=== PATIENT | female | born 1960 | race Native Hawaiian/Other Pacific Islander ===

== ENCOUNTER 2020-06-03 11:39 | Inpatient (IN) | payer MEDICARE, MEDICAID, SELFPAY ==
[2020-06-03] VITALS (22 sets, daily range): BP systolic 119–181; BP diastolic 57–96; PULSE 55–69; RESP 16–30; TEMP 36.4–36.7; O2SAT 94–100; BMI 27.1; BMI 23.2
--- NOTE | 2020-06-03 11:53 | ED_ITS ---
HPI - Extremity Injury (Lower) <SUSI Ruth - Last Filed: 06/03/20 17:40> General Source: patient and EMS Mode of arrival: EMS Limitations: no limitations History of Present Illness HPI Narrative: 59yo female a cholecystectomy, presents to the emergency department complaining of intermittent epigastric abdominal pain that started around 4:00 a.m. today. She states it often comes and goes, it comes on in severe episodes that nausea. Patient states she drove from [place] today and parked at the gas station by the hospital, the pain returned suddenly. She states the pain was so severe that she thought she was going to pass out so she stayed in her car and called an ambulance. Patient denies any other major medical issues. She denies any vomiting, diarrhea, fevers, chills, cough, shortness of breath, syncope, or other concerns. She denies any dysuria or blood in her stools. EMS initially report patient would not answer any other questions. Related Data Allergies Allergy/AdvReac Type Severity Reaction Status Date / Time No Known Drug Allergies Allergy Verified 06/03/20 11:59 Review of Systems <SUSI Ruth - Last Filed: 06/03/20 17:40> Review of Systems Narrative: REVIEW OF SYSTEMS: GENERAL: Denies fever, chills, malaise, or wt. loss. HENT: No head trauma, sore throat, or dysphagia. EYES: No loss of vision, double vision, eye pain, or irritation. CARDIOVASCULAR: No chest pain, palpitations, or orthopnea. RESPIRATORY: No shortness of breath or cough. GASTROINTESTINAL: Complains of abdominal pain, see HPI GENITOURINARY: No flank pain, urinary incontinence, hesitancy, frequency, or dysuria. MUSCULOSKELETAL: No pain, weakness, or trauma. INTEGUMENTARY: No rash, lesions, or pruritus. NEURO: No numbness, tingling, memory loss, confusion, or headaches. PSYCH: No behavior or mood changes. Patient History <SUSI Ruth - Last Filed: 06/03/20 17:40> Medical History (Updated 06/03/20 @ 18:01 by Giles Abrams RN) Rotator cuff tear, left (Acute) Surgical History History of cholecystectomy (Acute) Social History household members: none Smoking Status: Current every day smoker alcohol intake: never Smoking Status: Current every day smoker tobacco type: cigarettes alcohol intake frequency: other Substance Use Type: does not use Exam <SUSI Ruth - Last Filed: 06/03/20 17:40> Initial Vital Signs Initial Vital Signs: Vital Signs Temperature 98 F 06/03/20 11:41 Pulse Rate 64 06/03/20 11:41 Respiratory Rate 16 06/03/20 11:41 Blood Pressure 121/57 L 06/03/20 11:41 Pulse Oximetry 97 06/03/20 11:41 PHYSICAL EXAMINATION: GENERAL: Well groomed. Poor historian, patient is occasionally cooperative with answering historical questions. Answers questions promptly and appropriately. Vital signs noted. HENT: Normocephalic, atraumatic. Hearing intact. Oral mucosa is pink and moist. EYES: Conjunctiva pink, sclera white, no periorbital swelling. CARDIOVASCULAR: S1 and S2 sounds normal. Regular rate and rhythm, no murmurs, clicks, or bruits. No pedal edema. RESPIRATORY: Normal respiratory rate, trachea midline, airway patent. No stridor, nasal flaring or accessory muscle use. Lungs are clear in all kruse without wheeze, rhonchi, or crackles. GASTROINTESTINAL: Bowel sounds normoactive. Abdomen is soft, tenderness to epigastric region and left upper quadrant, slight tenderness to umbilical area.. No organomegaly, no palpable masses. GENITALURINARY: No flank tenderness. MUSCULOSKELETAL: Normal gait and coordination. Equal tone and mass bilaterally. EXTREMITIES: CMS intact, no pedal edema. SKIN: Warm, dry, soft, appropriate color for ethnicity. No lesions, rashes, or wounds to visualized areas. NEURO: Alert and Oriented X 3. Good coordination. No ataxia, or sensory deficits, or cognitive issues. PSYCH: Appropriate affect and mood. <Lauryn Pope MD - Last Filed: 06/03/20 18:46> Initial Vital Signs Initial Vital Signs: Vital Signs Temperature 98 F 06/03/20 11:41 Pulse Rate 64 06/03/20 11:41 Respiratory Rate 16 06/03/20 11:41 Blood Pressure 121/57 L 06/03/20 11:41 Pulse Oximetry 97 06/03/20 11:41 Course <Marlena DnenisSUSI - Last Filed: 06/03/20 17:40> Course Course Narrative: Radiologist called to inform of small bowel obstruction seen. 1411: Dr. Pope paged for consult. 1450: I spoke with Dr. Pope who came to the emergency department to visualize the patient. She accepts for admission, requests and NG tube insertion 1700: After NG tube insertion, patient reported vomiting and nausea, Zofran was given Orders Ordered: ED Orders 06/03/20 11:49 Complete Blood Count AUTO DIFF Stat Comprehensive Metabolic Panel Stat Lipase Stat Troponin & CK Cardiac Panel Stat 06/03/20 11:51 XR chest 1V Stat 06/03/20 13:05 CT abdomen pelvis w con Stat Lactated Ringer's (Lactated Ringers) 1,000 mls @ 100 mls/hr IV CONT ABDIRAHMAN Last Admin: 06/03/20 17:58 Dose: 100 mls/hr Documented by: ANAND Methylprednisolone (Solu-Medrol) 40 mg IV DAILY ABDIRAHMAN Morphine Sulfate (Morphine) 2 mg IV Q4HR PRN PRN Reason: Pain, Moderate (4-6) Ondansetron HCl (Zofran) 4 mg IV Q4HR PRN PRN Reason: Nausea And Vomiting Last Admin: 06/03/20 17:11 Dose: 4 mg Documented by: EB Discontinued Medications Sodium Chloride (Normal Saline 0.9%) 500 mls @ 1,000 mls/hr IV BOLUS ONE Stop: 06/03/20 12:19 Last Infusion: 06/03/20 16:08 Dose: 0 mls/hr Documented by: Admin: 06/03/20 12:12 Dose: 1,000 mls/hr Documented by: PILI Ketorolac Tromethamine (Toradol) 30 mg IV NOW ONE Stop: 06/03/20 11:51 Last Admin: 06/03/20 12:10 Dose: 30 mg Documented by: PILI Ondansetron HCl (Zofran) 4 mg IV NOW ONE Stop: 06/03/20 11:52 Last Admin: 06/03/20 12:17 Dose: 4 mg Documented by: PILI Ondansetron HCl (Zofran) 4 mg IV NOW ONE Stop: 06/03/20 17:05 Last Admin: 06/03/20 17:52 Dose: Not Given Documented by: KOLE Kamara Consultation #1: Patient staffed with Dr. Jenkins discussed test, test results, and plan of care. Vital Signs Vital signs: Vital Signs - 8 hr 06/03/20 11:41 06/03/20 11:42 06/03/20 11:50 Temperature 98 F 97.8 F Pulse Rate 64 69 60 Respiratory Rate 16 19 19 Blood Pressure 121/57 L 122/96 H Pulse Oximetry 97 96 06/03/20 12:00 06/03/20 12:30 06/03/20 12:31 Temperature Pulse Rate 58 L 62 61 Respiratory Rate 24 23 21 Blood Pressure 142/67 H 136/64 Pulse Oximetry 98 99 97 06/03/20 13:00 06/03/20 13:30 06/03/20 14:00 Temperature Pulse Rate 64 59 L 61 Respiratory Rate 18 18 30 H Blood Pressure 131/77 Pulse Oximetry 98 97 100 06/03/20 14:30 06/03/20 15:00 06/03/20 15:01 Temperature Pulse Rate 55 L 57 L 58 L Respiratory Rate 19 22 20 Blood Pressure 123/74 139/75 Pulse Oximetry 98 <Lauryn Pope MD - Last Filed: 06/03/20 18:46> Orders Ordered: ED Orders 06/03/20 11:49 Complete Blood Count AUTO DIFF Stat Comprehensive Metabolic Panel Stat Lipase Stat Troponin & CK Cardiac Panel Stat 06/03/20 11:51 XR chest 1V Stat 06/03/20 13:05 CT abdomen pelvis w con Stat Lactated Ringer's (Lactated Ringers) 1,000 mls @ 100 mls/hr IV CONT ABDIRAHMAN Last Admin: 06/03/20 17:58 Dose: 100 mls/hr Documented by: ANAND Methylprednisolone (Solu-Medrol) 40 mg IV DAILY ABDIRAHMAN Morphine Sulfate (Morphine) 2 mg IV Q4HR PRN PRN Reason: Pain, Moderate (4-6) Ondansetron HCl (Zofran) 4 mg IV Q4HR PRN PRN Reason: Nausea And Vomiting Last Admin: 06/03/20 17:11 Dose: 4 mg Documented by: EB Discontinued Medications Sodium Chloride (Normal Saline 0.9%) 500 mls @ 1,000 mls/hr IV BOLUS ONE Stop: 06/03/20 12:19 Last Infusion: 06/03/20 16:08 Dose: 0 mls/hr Documented by: Admin: 06/03/20 12:12 Dose: 1,000 mls/hr Documented by: PILI Ketorolac Tromethamine (Toradol) 30 mg IV NOW ONE Stop: 06/03/20 11:51 Last Admin: 06/03/20 12:10 Dose: 30 mg Documented by: PILI Ondansetron HCl (Zofran) 4 mg IV NOW ONE Stop: 06/03/20 11:52 Last Admin: 06/03/20 12:17 Dose: 4 mg Documented by: PILI Ondansetron HCl (Zofran) 4 mg IV NOW ONE Stop: 06/03/20 17:05 Last Admin: 06/03/20 17:52 Dose: Not Given Documented by: KOLE Vital Signs Vital signs: Vital Signs - 8 hr 06/03/20 11:41 06/03/20 11:42 06/03/20 11:50 Temperature 98 F 97.8 F Pulse Rate 64 69 60 Respiratory Rate 16 19 19 Blood Pressure 121/57 L 122/96 H Pulse Oximetry 97 96 06/03/20 12:00 06/03/20 12:30 06/03/20 12:31 Temperature Pulse Rate 58 L 62 61 Respiratory Rate 24 23 21 Blood Pressure 142/67 H 136/64 Pulse Oximetry 98 99 97 06/03/20 13:00 06/03/20 13:30 06/03/20 14:00 Temperature Pulse Rate 64 59 L 61 Respiratory Rate 18 18 30 H Blood Pressure 131/77 Pulse Oximetry 98 97 100 06/03/20 14:30 06/03/20 15:00 06/03/20 15:01 Temperature Pulse Rate 55 L 57 L 58 L Respiratory Rate 19 22 20 Blood Pressure 123/74 139/75 Pulse Oximetry 98 MDM - Extremity Injury (Lower) <SUSI Ruth - Last Filed: 06/03/20 17:40> Medical Records Attestation: I reviewed the patient's medical records. Lab Data Attestation: I reviewed the patient's lab results. Result diagrams: 06/03/20 11:49 06/03/20 11:49 Labs: Lab Results 07/06/03/20 06/03/20 Range/Units 11:49 11:49 11:49 WBC 11.3 H (4.5-11.0) X10^3/uL RBC 4.65 (4.0-5.2) X10^6/uL Hgb 14.4 (12.0-16.0) g/dL Hct 43.6 (36-46) % MCV 93.6 (80-100) fL MCH 30.9 (26-34) PG MCHC 33.0 (30-36) % RDW 14.0 (11.6-14.8) % Plt Count 273 (150-400) X10^3/uL Neut % (Auto) 70.5 (50-75) % Lymph % (Auto) 20.5 L (25-40) % [place] % (Auto) 5.1 (3-14) % Eos % (Auto) 2.8 (2-4) % Baso % (Auto) 1.1 (0-2) % Neut # (Auto) 8000 H (4802-0354) /uL Lymph # (Auto) 2300 (1324-2498) /uL [place] # (Auto) 600 (0-900) /uL Eos # (Auto) 300 (0-450) /uL Baso # (Auto) 100 (0-100) /uL Sodium 140 (137-145) mmol/L Potassium 4.4 (3.4-5.1) mmol/L Chloride 110 H (98-107) mmol/L Carbon Dioxide 23 (22-32) mmol/L BUN 16 (7-17) mg/dL Creatinine 0.50 L (0.52-1.04) mg/dL Estimated GFR > 60.0 (>60) mL/min BUN/Creatinine Ratio 32.0 H (6-22) Glucose 108 H (70-100) mg/dL Calcium 9.2 (8.4-10.2) mg/dL Total Bilirubin 0.5 (0.2-1.3) mg/dL AST 38 H (14-36) IU/L ALT 19 (<35) IU/L Alkaline Phosphatase 79 (38-126) U/L Total Creatine Kinase 93 (30-135) U/L CK-MB (CK-2) TNP CK-MB (CK-2) Rel Index TNP Troponin I < 0.012 (0.01-0.034) ng/mL Total Protein 7.5 (6.3-8.2) g/dL Albumin 4.4 (3.5-5.0) g/dL Globulin 3.1 (1.7-4.1) g/dL Albumin/Globulin Ratio 1.4 (1.0-2.8) Lipase 70 (23-300) U/L Urine Dip Bedside Urine Glucose Negative Bedside Urine Bilirubin - Negative Bedside Urine Ketone - Negative Urine Specific [place] 1.005 Bedside Urine Occult Blood - Negative Bedside Urine pH 6 Bedside Urine Protein - Negative Bedside Urine Urobilinogen - Negative Bedside Urine Nitrite - Negative Bedside Urine Leukocytes - Negative Esterase Imaging Data CT scan - abdomen/pelvis: Radiologist's Impression: [address] [address] [address] Scan Report Signed Patient: Tricia Hankins AMR#: [id number] : 2Acct:[id number] Age/Sex: 59 / FDate of Service: 06/03/20 Loc: ED Accession Number: [id number] Procedure: CT abdomen pelvis w con Ordering Provider: Marlena Dennis PROCEDURE: CT ABDOMEN PELVIS W CON INDICATIONS: Upper bilateral abd pain, hx cholecystectomy TECHNIQUE: After the administration of intravenous contrast, 5 mm thick sections acquired from the diaphragm to the symphysis. 5 mm coronal and sagittal reformats were acquired. For radiation dose reduction, the following was used: automated exposure control, adjustment of mA and/or kV according to patient size. COMPARISON: None. FINDINGS: Image quality: Excellent. ABDOMEN: Lung bases: Mild bibasilar atelectasis. No pleural effusion. Heart size is normal. Solid organs: Liver is normal in size and enhancement. Gallbladder is surgically absent. Biliary system is non dilated. Pancreas enhances normally. Spleen is normal in size and enhancement. Trace fluid adjacent to the spleen. No adrenal nodules. Kidneys demonstrate normal size and enhancement, without hydronephrosis. Left kidney inferior pole simple cyst. Peritoneum and bowel: Multiple dilated loops of small bowel in the lower abdomen and emanating from the terminal ileum. The terminal ileum demonstrates increased mural enhancement and surrounding inflammatory change. There is fecalization within these loops of small bowel. There are air-fluid levels. There is a secondary narrowing in the ileum, (03/05). The appendix is normal. Small duodenal diverticulum. There is a small amount of free fluid in the pelvis and abdomen. Nodes and vessels: No retroperitoneal or mesenteric adenopathy by size criteria. Aorta and inferior vena cava are normal in size. Moderate calcified and noncalcified atherosclerotic plaque. Miscellaneous: No ventral hernias. PELVIS: Genitourinary: Bladder is within normal limits. Uterus is unremarkable. Miscellaneous: No inguinal hernias or adenopathy. Bones: No suspicious bony lesions. No vertebral body compression fractures. IMPRESSION: Distal small bowel obstruction. Abnormal enhancement of the terminal ileum and possible small bowel stricture raises the possibility of Crohn's disease and as etiology for obstruction. Small volume of free fluid in the abdomen and pelvis. No pneumoperitoneum. Comment: Findings were discussed with Marlena Dennis at the time of dictation. Dictated by: Francesco Young M.D. on 06/03/2020 at 13:25 Approved by: Francesco Young M.D. on 06/03/2020 at 13:59 Chest x-ray: Radiologist's Impression: [place] [address] XRay Report Signed Patient: Tricia Hankins AMR#: [id number] : 2Acct:[id number] Age/Sex: 59 / FDate of Service: 06/03/20 Loc: ED Accession Number: [id number] Procedure: XR chest 1V Ordering Provider: Marlena Dennis PROCEDURE: XR CHEST 1V INDICATIONS: epigastric pain TECHNIQUE: One view of the chest was acquired. COMPARISON: [facility], , XR CHEST 1 VIEW, 09/22/2017, 19:02. FINDINGS: Surgical changes and devices: None. Lungs and pleura: Lungs are clear. No pleural effusions or pneumothorax. Mediastinum: Mediastinal contours appear normal. Heart size is normal. Bones and chest wall: No suspicious bony lesions. Overlying soft tissues appear unremarkable. IMPRESSION: No acute cardiopulmonary process is evident. Dictated by: Constantine Williamson M.D. on 06/03/2020 at 12:37 Approved by: Constantine Williamson M.D. on 06/03/2020 at 12:41 ECG Data Interpretation: 1153: Sinus rhythm, rate 60, AL interval 152, QTC 428. No ST elevation or ST depression. T-wave inversion noted in V1. EKG also viewed by Dr. Jenkins. MDM Narrative Medical decision making narrative: 59-year-old female presents to the emergency department for significant abdominal pain. Diffuse tenderness, CT was ordered. Imaging shows a small bowel obstruction with structures possibly indicating Crohn's disease, suspect that this is most likely the cause of patient's pain. Less likely abdominal perforation due to lack of visual free air on CT, patient is hemodynamically stable, painful well-appearing. Slightly elevated white count of 11, less suspicion of sepsis. Surgeon was consulted, admits to inpatient. NG placed for request. Patient consented to admission. <Lauryn Pope MD - Last Filed: 06/03/20 18:46> Lab Data Labs: Lab Results 06/03/20 06/03/20 06/03/20 Range/Units 11:49 11:49 11:49 WBC 11.3 H (4.5-11.0) X10^3/uL RBC 4.65 (4.0-5.2) X10^6/uL Hgb 14.4 (12.0-16.0) g/dL Hct 43.6 (36-46) % MCV 93.6 (80-100) fL MCH 30.9 (26-34) PG MCHC 33.0 (30-36) % RDW 14.0 (11.6-14.8) % Plt Count 273 (150-400) X10^3/uL Neut % (Auto) 70.5 (50-75) % Lymph % (Auto) 20.5 L (25-40) % [place] % (Auto) 5.1 (3-14) % Eos % (Auto) 2.8 (2-4) % Baso % (Auto) 1.1 (0-2) % Neut # (Auto) 8000 H (0503-2148) /uL Lymph # (Auto) 2300 (1988-2671) /uL [place] # (Auto) 600 (0-900) /uL Eos # (Auto) 300 (0-450) /uL Baso # (Auto) 100 (0-100) /uL Sodium 140 (137-145) mmol/L Potassium 4.4 (3.4-5.1) mmol/L Chloride 110 H (98-107) mmol/L Carbon Dioxide 23 (22-32) mmol/L BUN 16 (7-17) mg/dL Creatinine 0.50 L (0.52-1.04) mg/dL Estimated GFR > 60.0 (>60) mL/min BUN/Creatinine Ratio 32.0 H (6-22) Glucose 108 H (70-100) mg/dL Calcium 9.2 (8.4-10.2) mg/dL Total Bilirubin 0.5 (0.2-1.3) mg/dL AST 38 H (14-36) IU/L ALT 19 (<35) IU/L Alkaline Phosphatase 79 (38-126) U/L Total Creatine Kinase 93 (30-135) U/L CK-MB (CK-2) TNP CK-MB (CK-2) Rel Index TNP Troponin I < 0.012 (0.01-0.034) ng/mL Total Protein 7.5 (6.3-8.2) g/dL Albumin 4.4 (3.5-5.0) g/dL Globulin 3.1 (1.7-4.1) g/dL Albumin/Globulin Ratio 1.4 (1.0-2.8) Lipase 70 (23-300) U/L Urine Dip Bedside Urine Glucose Negative Bedside Urine Bilirubin - Negative Bedside Urine Ketone - Negative Urine Specific [place] 1.005 Bedside Urine Occult Blood - Negative Bedside Urine pH 6 Bedside Urine Protein - Negative Bedside Urine Urobilinogen - Negative Bedside Urine Nitrite - Negative Bedside Urine Leukocytes - Negative Esterase Discharge Plan Departure Patient Disposition: Admitted As Inpatient Clinical Impression: SBO (small bowel obstruction), Small bowel stricture Discharge Date/Time: 06/03/20 17:40 Admit Date/Time: 06/03/20 15:08
[2020-06-03 11:57] LABS: Add Manual Diff / Slide Review NO; Basophils Absolute Auto 100 /uL (0-100); Basophils Percent Auto 1.1 % (0-2); Eosinophils Absolute Auto 300 /uL (0-450); Eosinophils Percent Auto 2.8 % (2-4); Hematocrit 43.6 % (36-46); Hemoglobin 14.4 g/dL (12.0-16.0); Lymphocytes Absolute Auto 2300 /uL (1100-4500); Lymphocytes Percent Auto 20.5 % (25-40); Mean Corpuscular Hemoglobin 30.9 PG (26-34); Mean Corpuscular Volume 93.6 fL (80-100); Monocytes Absolute Auto 600 /uL (0-900); Monocytes Percent Auto 5.1 % (3-14); Neutrophils Absolute Auto 8000 /uL (1500-7000); Neutrophils Percent Auto 70.5 % (50-75); Platelet Count 273 X10^3/uL (150-400); Red Blood Cell Count 4.65 X10^6/uL (4.0-5.2); White Blood Cell Count 11.3 X10^3/uL (4.5-11.0)
[2020-06-03] MEDS: KETOROLAC 60 MG/2 ML VIAL 30 MG IV (12:10)
[2020-06-03] MEDS: SODIUM CHLORIDE 0.9% 500 ML 1000 ML IV (12:12)
[2020-06-03 12:13] LABS: Alanine Aminotransferase 19 IU/L (<35); Albumin 4.4 g/dL (3.5-5.0); Albumin Globulin Ratio 1.4 (1.0-2.8); Alkaline Phosphatase 79 U/L (38-126); Bilirubin Total 0.5 mg/dL (0.2-1.3); Blood Urea Nitrogen 16 mg/dL (7-17); Calcium 9.2 mg/dL (8.4-10.2); Carbon Dioxide 23 mmol/L (22-32); Chloride 110 mmol/L (98-107); Creatine Kinase 93 U/L (30-135); Estimated Glomerular Filt Rate > 60.0 mL/min (>60); Globulin 3.1 g/dL (1.7-4.1); Glucose 108 mg/dL (70-100); Lipase 70 U/L (23-300); Sodium 140 mmol/L (137-145); Total Protein 7.5 g/dL (6.3-8.2)
[2020-06-03] MEDS: ONDANSETRON 4 MG/2 ML INJ IV ×2 (12:17→17:11)
[2020-06-03 12:19] LABS: HEMOLYSIS 63 (0-50)
[2020-06-03 12:20] LABS: Aspartate Aminotransferase 38 IU/L (14-36); Potassium 4.4 mmol/L (3.4-5.1)
[2020-06-03 12:24] LABS: Troponin I < 0.012 ng/mL (0.01-0.034)
--- NOTE | 2020-06-03 13:05 | DI.CT.S_ITS ---
PROCEDURE: CT ABDOMEN PELVIS W CON INDICATIONS: Upper bilateral abd pain, hx cholecystectomy TECHNIQUE: After the administration of intravenous contrast, 5 mm thick sections acquired from the diaphragm to the symphysis. 5 mm coronal and sagittal reformats were acquired. For radiation dose reduction, the following was used: automated exposure control, adjustment of mA and/or kV according to patient size. COMPARISON: None. FINDINGS: Image quality: Excellent. ABDOMEN: Lung bases: Mild bibasilar atelectasis. No pleural effusion. Heart size is normal. Solid organs: Liver is normal in size and enhancement. Gallbladder is surgically absent. Biliary system is non dilated. Pancreas enhances normally. Spleen is normal in size and enhancement. Trace fluid adjacent to the spleen. No adrenal nodules. Kidneys demonstrate normal size and enhancement, without hydronephrosis. Left kidney inferior pole simple cyst. Peritoneum and bowel: Multiple dilated loops of small bowel in the lower abdomen and emanating from the terminal ileum. The terminal ileum demonstrates increased mural enhancement and surrounding inflammatory change. There is fecalization within these loops of small bowel. There are air-fluid levels. There is a secondary narrowing in the ileum, (4/22). The appendix is normal. Small duodenal diverticulum. There is a small amount of free fluid in the pelvis and abdomen. Nodes and vessels: No retroperitoneal or mesenteric adenopathy by size criteria. Aorta and inferior vena cava are normal in size. Moderate calcified and noncalcified atherosclerotic plaque. Miscellaneous: No ventral hernias. PELVIS: Genitourinary: Bladder is within normal limits. Uterus is unremarkable. Miscellaneous: No inguinal hernias or adenopathy. Bones: No suspicious bony lesions. No vertebral body compression fractures. IMPRESSION: Distal small bowel obstruction. Abnormal enhancement of the terminal ileum and possible small bowel stricture raises the possibility of Crohn's disease and as etiology for obstruction. Small volume of free fluid in the abdomen and pelvis. No pneumoperitoneum. Comment: Findings were discussed with Marlena Dennis at the time of dictation. Dictated by: Francesco Young M.D. on 06/03/2020 at 13:25 Approved by: Francesco Young M.D. on 06/03/2020 at 13:59
--- NOTE | 2020-06-03 15:23 | PM.HP.1 ---
History of Present Illness History of Present Illness Date Patient Seen: 06/03/20 Time Patient Seen: 15:23 Chief complaint: ABD Pain Narrative: 59 yo woman with history of cholecystectomy, came into the ER today with one day of diffuse colicky upper abdominal pain and nausea without vomiting. CT scan in ER, looks like SBO with thickened distal ileum, possible IBD. Low grade WBC 11.3, CRP and ESR are normal. Stool calprotectin is pending. She has had similar episodes of pain before. She denies any history of melena, hematochezia, or chronic diarrhea. She has never had a colonoscopy. She denies any significant medical history. ROS: GENERAL: Denies fever, chills, malaise, or wt. loss. HENT: No head trauma, sore throat, or dysphagia. EYES: No loss of vision, double vision, eye pain, or irritation. CARDIOVASCULAR: No chest pain, palpitations, or orthopnea. RESPIRATORY: No shortness of breath or cough. GASTROINTESTINAL: Complains of abdominal pain, see HPI GENITOURINARY: No flank pain, urinary incontinence, hesitancy, frequency, or dysuria. MUSCULOSKELETAL: No pain, weakness, or trauma. INTEGUMENTARY: No rash, lesions, or pruritus. NEURO: No numbness, tingling, memory loss, confusion, or headaches. PSYCH: No behavior or mood changes. PE: GENERAL: Alert, uncomfortable appearing. Appears stated age. Answers questions promptly and appropriately. Vital signs noted. HENT: Normocephalic, atraumatic. Hearing intact. EYES: Conjunctiva pink, sclera white, no periorbital swelling. CARDIOVASCULAR: Regular rate. No pedal edema. RESPIRATORY: Non-tachypneic, breathing comfortably on room air. GASTROINTESTINAL: Abdomen soft, rounded, mildly distended, diffuse mild TTP; no masses GENITALURINARY: No flank tenderness. MUSCULOSKELETAL: Equal tone and mass bilaterally. SKIN: Warm, dry, soft, appropriate color for ethnicity. No other lesions, rashes, or wounds. NEURO: Alert and Oriented X 3. No gross sensory deficits, or cognitive issues. PSYCH: Appropriate affect and mood. Patient History Surgical History History of cholecystectomy (Acute) Family & Social History Safety & Behavioral: Feels Safe in Current Yes Environment Been Physically Hurt or No Threatened By a Person Tobacco & Substance use: Smoking Status Current every day smoker alcohol intake frequency other Substance Use Type does not use Meds Home Medications and Allergies Allergies Allergy/AdvReac Type Severity Reaction Status Date / Time No Known Drug Allergies Allergy Verified 06/03/20 11:59 Exam Vital Signs (past 8 hours): - 06/03/20 11:41 06/03/20 11:42 06/03/20 11:50 Temperature 98 F 97.8 F Pulse Rate 64 69 60 Respiratory Rate 16 19 19 Blood Pressure 121/57 L 122/96 H Pulse Oximetry 97 96 06/03/20 12:00 06/03/20 12:30 06/03/20 12:31 Temperature Pulse Rate 58 L 62 61 Respiratory Rate 24 23 21 Blood Pressure 142/67 H 136/64 Pulse Oximetry 98 99 97 06/03/20 13:00 06/03/20 13:30 Temperature Pulse Rate 64 59 L Respiratory Rate 18 18 Blood Pressure Pulse Oximetry 98 97 Oxygen Delivery Method Room Air Objective Imaging CT scan - abdomen: My impression: mild SBO, thickened ileum Radiologist's impression: [address] [place] [address] CT Scan Report Signed Patient: Tricia Hankins [facility]#: [id number] : 2Acct:[id number] Age/Sex: 59 / FDate of Service: 06/03/20 Loc: ED Accession Number: [id number] Procedure: CT abdomen pelvis w con Ordering Provider: Marlena Dennis PROCEDURE: CT ABDOMEN PELVIS W CON INDICATIONS: Upper bilateral abd pain, hx cholecystectomy TECHNIQUE: After the administration of intravenous contrast, 5 mm thick sections acquired from the diaphragm to the symphysis. 5 mm coronal and sagittal reformats were acquired. For radiation dose reduction, the following was used: automated exposure control, adjustment of mA and/or kV according to patient size. COMPARISON: None. FINDINGS: Image quality: Excellent. ABDOMEN: Lung bases: Mild bibasilar atelectasis. No pleural effusion. Heart size is normal. Solid organs: Liver is normal in size and enhancement. Gallbladder is surgically absent. Biliary system is non dilated. Pancreas enhances normally. Spleen is normal in size and enhancement. Trace fluid adjacent to the spleen. No adrenal nodules. Kidneys demonstrate normal size and enhancement, without hydronephrosis. Left kidney inferior pole simple cyst. Peritoneum and bowel: Multiple dilated loops of small bowel in the lower abdomen and emanating from the terminal ileum. The terminal ileum demonstrates increased mural enhancement and surrounding inflammatory change. There is fecalization within these loops of small bowel. There are air-fluid levels. There is a secondary narrowing in the ileum, (/). The appendix is normal. Small duodenal diverticulum. There is a small amount of free fluid in the pelvis and abdomen. Nodes and vessels: No retroperitoneal or mesenteric adenopathy by size criteria. Aorta and inferior vena cava are normal in size. Moderate calcified and noncalcified atherosclerotic plaque. Miscellaneous: No ventral hernias. PELVIS: Genitourinary: Bladder is within normal limits. Uterus is unremarkable. Miscellaneous: No inguinal hernias or adenopathy. Bones: No suspicious bony lesions. No vertebral body compression fractures. IMPRESSION: Distal small bowel obstruction. Abnormal enhancement of the terminal ileum and possible small bowel stricture raises the possibility of Crohn's disease and as etiology for obstruction. Small volume of free fluid in the abdomen and pelvis. No pneumoperitoneum. Comment: Findings were discussed with Marlena Dennis at the time of dictation. Dictated by: Francesco Young M.D. on 06/03/2020 at 13:25 Approved by: Francesco Young M.D. on 06/03/2020 at 13:59 Labs Result Diagrams: 06/03/20 11:49 06/03/20 11:49 Labs: Laboratory Results - last 24 hr 06/03/20 06/03/20 06/03/20 11:49 11:49 11:49 WBC 11.3 H RBC 4.65 Hgb 14.4 Hct 43.6 MCV 93.6 MCH 30.9 MCHC 33.0 RDW 14.0 Plt Count 273 Neut % (Auto) 70.5 Lymph % (Auto) 20.5 L [place] % (Auto) 5.1 Eos % (Auto) 2.8 Baso % (Auto) 1.1 Neut # (Auto) 8000 H Lymph # (Auto) 2300 [place] # (Auto) 600 Eos # (Auto) 300 Baso # (Auto) 100 Sodium 140 Potassium 4.4 Chloride 110 H Carbon Dioxide 23 BUN 16 Creatinine 0.50 L Estimated GFR > 60.0 BUN/Creatinine Ratio 32.0 H Glucose 108 H Calcium 9.2 Total Bilirubin 0.5 AST 38 H ALT 19 Alkaline Phosphatase 79 Total Creatine Kinase 93 CK-MB (CK-2) TNP CK-MB (CK-2) Rel Index TNP Troponin I < 0.012 Total Protein 7.5 Albumin 4.4 Globulin 3.1 Albumin/Globulin Ratio 1.4 Lipase 70 Assessment & Plan Assessment and plan (1) SBO (small bowel obstruction): Status: Acute (2) Small bowel stricture: Status: Acute Assessment & Plan narrative: 59 yo woman with history of lap constance, never had a colonoscopy, came into ER with abdominal pain, CT consistent with SBO with suspicion of IBD. Plan: COVID test NPO except for sips/ice chips NGT to LIWS IV fluids IV steroid DVT ppx GI ppx ambulate SBFT tomorrow COVID-19 COVID-19 status: Result pending Result date/Date tested (Pos, Neg/Pending): 06/03/20 Time Spent With Patient Time with patient: 15-24 minutes Quality VTE Deep Vein Thrombosis/Pulmonary Embolism Present on Admission: No
--- NOTE | 2020-06-03 15:41 | CM.SWNOTE ---
IMMIGRATION MANAGER note IMMIGRATION MANAGER consult requested for patient by DEMETRIO Anthony. DEMETRIO Anthony reports that patient has been admitted to hospital but is worried about returning her rental car and discussing leaving prior to being admitted in order to return car. IMMIGRATION MANAGER enters room and meets with patient. Patient explains she has contacted someone she knows who has offered to take care of coordinating the return of the car. Patient to contact friend and IMMIGRATION MANAGER offers addition support in coordination should something prevent this plan from working. REJI Casanova
[2020-06-03 16:45] LABS: Erythrocyte Sedimentation Rate 14 MM/HR (0-20)
--- NOTE | 2020-06-03 17:03 | DI.RAD.S_ITS ---
PROCEDURE: XR CHEST 1V INDICATIONS: chest/abd for NGT placement TECHNIQUE: One view of the chest was acquired. COMPARISON: [facility], CR, XR CHEST 1V, 06/03/2020, 12:45. FINDINGS: Surgical changes and devices: Nasogastric tube is present with distal tip projecting below the left hemidiaphragm. Side port is below the gastroesophageal junction. Cholecystectomy clips. Lungs and pleura: Lungs are clear. No pleural effusions or pneumothorax. Mediastinum: Mediastinal contours appear normal. Heart size is normal. Bones and chest wall: No suspicious bony lesions. Overlying soft tissues appear unremarkable. IMPRESSION: Support lines as above. Dictated by: Claribel Holm M.D. on 06/03/2020 at 17:59 Approved by: Claribel Holm M.D. on 06/03/2020 at 18:00
[2020-06-03 17:05] LABS: Procalcitonin < 0.05 ng/mL (<0.5)
[2020-06-03 17:10] LABS: COVID19 -Nasal RAPID Negative (Negative)
[2020-06-03] MEDS: LIDOCAINE 1% (PF) 2 ML (17:11)
--- NOTE | 2020-06-03 17:21 | PC.NURSE ---
Report given to DEMETRIO Knapp.
[2020-06-03] MEDS: LACTATED RINGERS 1,000 ML 100 ML IV (17:58)
[2020-06-03] MEDS: MORPHINE 2 MG/ML INJ IV (20:14)
[2020-06-03] MEDS: FAMOTIDINE 20 MG/50 ML PIGGYBACK 200 MG IV (21:37)
[2020-06-03] MEDS: HEPARIN 5,000 UNIT/ML VIAL 5000 UNIT SUBCUT (21:38)
[2020-06-04] MEDS: FAMOTIDINE 20 MG/50 ML PIGGYBACK 200 MG IV ×3 (00:31→23:42)
[2020-06-04 04:08] VITALS: BP 108/63; PULSE 58; RESP 16; TEMP 36.4; O2SAT 95
[2020-06-04] MEDS: LACTATED RINGERS 1,000 ML 100 ML IV (05:01)
[2020-06-04 05:34] LABS: Add Manual Diff / Slide Review NO; Basophils Absolute Auto 100 /uL (0-100); Basophils Percent Auto 1.2 % (0-2); Eosinophils Absolute Auto 400 /uL (0-450); Hematocrit 37.8 % (36-46); Hemoglobin 12.6 g/dL (12.0-16.0); Lymphocytes Absolute Auto 1900 /uL (1100-4500); Lymphocytes Percent Auto 28.5 % (25-40); Mean Corpuscular HGB Conc 33.3 % (30-36); Mean Corpuscular Volume 93.3 fL (80-100); Monocytes Absolute Auto 500 /uL (0-900); Monocytes Percent Auto 7.4 % (3-14); Neutrophils Absolute Auto 3800 /uL (1500-7000); Neutrophils Percent Auto 56.9 % (50-75); Platelet Count 224 X10^3/uL (150-400); Red Blood Cell Count 4.05 X10^6/uL (4.0-5.2); Red Cell Distribution Width 13.9 % (11.6-14.8); White Blood Cell Count 6.6 X10^3/uL (4.5-11.0)
[2020-06-04 05:40] LABS: BUN Creatinine Ratio 23.2 (6-22); Blood Urea Nitrogen 13 mg/dL (7-17); Calcium 8.1 mg/dL (8.4-10.2); Carbon Dioxide 24 mmol/L (22-32); Chloride 110 mmol/L (98-107); Estimated Glomerular Filt Rate > 60.0 mL/min (>60); Glucose 88 mg/dL (70-100); HEMOLYSIS 19 (0-50); Magnesium 2.2 mg/dL (1.6-2.3); Potassium 3.7 mmol/L (3.4-5.1); Sodium 138 mmol/L (137-145)
--- NOTE | 2020-06-04 07:10 | DI.RAD.S_ITS ---
PROCEDURE: FL SMALL BOWEL FOLLOW THROUGH INDICATIONS: SBO, diagnostic/therapeutic COMPARISON: None. FINDINGS: KUB: Preprocedural reducing system operator film demonstrates a normal bowel gas pattern. No suspicious abdominal calcifications. Visualized solid organ contours appear normal. No suspicious bony abnormalities. Small bowel: There is normal transit time of barium through the small bowel. Small bowel loops are of normal caliber throughout. Mucosal folds are smooth and of normal thickness. No strictures, intraluminal masses, or extrinsic mass effects are noted. The terminal ileum is identified, and is normal in morphology. IMPRESSION: 1. Normal small bowel follow-through. 2. No dilated loops of small bowel. 3. No definite small bowel stricture or small bowel mass. 4. No small bowel wall thickening. Dictated by: Rebecca Montaño MD, PhD on 06/04/2020 at 12:27 Approved by: Rebceca Montaño MD, PhD on 06/04/2020 at 12:29
--- NOTE | 2020-06-04 07:12 | PM.PN.1 ---
Subjective Subjective Date Patient Seen: 06/04/20 Time Patient Seen: 07:12 Interval history: No acute events over night. Pt passed some gas but no stool. Abdominal pain slightly better. Still feels distended. Exam Vital Signs (past 8 hours): - 06/03/20 23:50 06/04/20 04:08 Temperature 97.6 F 97.5 F L Pulse Rate 58 L 58 L Respiratory Rate 18 16 Blood Pressure 119/73 108/63 Pulse Oximetry 94 95 Oxygen Delivery Method Room Air Oxygen Flow Rate 0 Narrative Exam Narrative: GENERAL: Alert. Appears stated age. Answers questions promptly and appropriately. Vital signs noted. HENT: Normocephalic, atraumatic. Hearing intact. NGT in place and sumping. Serous output. EYES: Conjunctiva pink, sclera white, no periorbital swelling. CARDIOVASCULAR: Regular rate. No pedal edema. RESPIRATORY: Non-tachypneic, breathing comfortably on room air. GASTROINTESTINAL: Abdomen soft; rounded, slightly distended, mild diffuse TTP GENITALURINARY: No flank tenderness. MUSCULOSKELETAL: Equal tone and mass bilaterally. SKIN: Warm, dry, soft, appropriate color for ethnicity. No other lesions, rashes, or wounds. NEURO: Alert and Oriented X 3. No gross sensory deficits, or cognitive issues. PSYCH: Appropriate affect and mood. Objective Labs Result Diagrams: 06/04/20 05:10 06/04/20 05:10 Labs: Laboratory Results - last 24 hr 06/03/20 06/03/20 06/03/20 11:49 11:49 11:49 WBC 11.3 H RBC 4.65 Hgb 14.4 Hct 43.6 MCV 93.6 MCH 30.9 MCHC 33.0 RDW 14.0 Plt Count 273 Neut % (Auto) 70.5 Lymph % (Auto) 20.5 L [place] % (Auto) 5.1 Eos % (Auto) 2.8 Baso % (Auto) 1.1 Neut # (Auto) 8000 H Lymph # (Auto) 2300 [place] # (Auto) 600 Eos # (Auto) 300 Baso # (Auto) 100 ESR Sodium 140 Potassium 4.4 Chloride 110 H Carbon Dioxide 23 BUN 16 Creatinine 0.50 L Estimated GFR > 60.0 BUN/Creatinine Ratio 32.0 H Glucose 108 H Calcium 9.2 Magnesium Total Bilirubin 0.5 AST 38 H ALT 19 Alkaline Phosphatase 79 Total Creatine Kinase 93 CK-MB (CK-2) TNP CK-MB (CK-2) Rel Index TNP Troponin I < 0.012 C-Reactive Protein Total Protein 7.5 Albumin 4.4 Globulin 3.1 Albumin/Globulin Ratio 1.4 Lipase 70 Procalcitonin COVID-19 PCR 06/03/20 06/03/20 06/03/20 15:31 16:12 16:12 WBC RBC Hgb Hct MCV MCH MCHC RDW Plt Count Neut % (Auto) Lymph % (Auto) [place] % (Auto) Eos % (Auto) Baso % (Auto) Neut # (Auto) Lymph # (Auto) [place] # (Auto) Eos # (Auto) Baso # (Auto) ESR 14 Sodium Potassium Chloride Carbon Dioxide BUN Creatinine Estimated GFR BUN/Creatinine Ratio Glucose Calcium Magnesium Total Bilirubin AST ALT Alkaline Phosphatase Total Creatine Kinase CK-MB (CK-2) CK-MB (CK-2) Rel Index Troponin I C-Reactive Protein 1.0 Total Protein Albumin Globulin Albumin/Globulin Ratio Lipase Procalcitonin COVID-19 PCR Negative 06/03/20 06/04/20 06/04/20 16:12 05:10 05:10 WBC 6.6 RBC 4.05 Hgb 12.6 Hct 37.8 MCV 93.3 MCH 31.0 MCHC 33.3 RDW 13.9 Plt Count 224 Neut % (Auto) 56.9 Lymph % (Auto) 28.5 [place] % (Auto) 7.4 Eos % (Auto) 6.0 H Baso % (Auto) 1.2 Neut # (Auto) 3800 Lymph # (Auto) 1900 [place] # (Auto) 500 Eos # (Auto) 400 Baso # (Auto) 100 ESR Sodium 138 Potassium 3.7 Chloride 110 H Carbon Dioxide 24 BUN 13 Creatinine 0.56 Estimated GFR > 60.0 BUN/Creatinine Ratio 23.2 H Glucose 88 Calcium 8.1 L Magnesium 2.2 Total Bilirubin AST ALT Alkaline Phosphatase Total Creatine Kinase CK-MB (CK-2) CK-MB (CK-2) Rel Index Troponin I C-Reactive Protein Total Protein Albumin Globulin Albumin/Globulin Ratio Lipase Procalcitonin < 0.05 COVID-19 PCR Assessment & Plan Assessment and plan (1) SBO (small bowel obstruction): Status: Acute (2) Small bowel stricture: Status: Acute Assessment & Plan narrative: 59 yo woman with history of lap constance, never had a colonoscopy, came into ER with abdominal pain, CT consistent with SBO with suspicion of IBD. Passing some gas. NGT in place with minimal output. Plan: NPO except for sips/ice chips NGT to LIWS IV fluids IV steroid DVT ppx GI ppx ambulate SBFT today potassium repletion to K of 4 COVID-19 COVID-19 status: Negative Result date/Date tested (Pos, Neg/Pending): 06/03/20 Time Spent With Patient Time with patient: 15-24 minutes Quality VTE Deep Vein Thrombosis/Pulmonary Embolism Present on Admission: No
[2020-06-04] MEDS: HEPARIN 5,000 UNIT/ML VIAL 5000 UNIT SUBCUT ×2 (08:09→20:36)
[2020-06-04] MEDS: KCL 40 MEQ IN NS 1,000 ML 100 MEQ IV (08:10)
[2020-06-04] MEDS: MORPHINE 2 MG/ML INJ IV ×2 (08:17→12:13)
[2020-06-04 08:52] VITALS: BP 132/80; PULSE 60; RESP 15; TEMP 36.9; O2SAT 99
--- NOTE | 2020-06-04 10:24 | PC.NURSE ---
Addendum entered by Geri Garcia R.N. 06/04/20 14:57: Patient's ng tube taken out and she is on clear liquids now. Tolerating well. After contrast from small bowel follow through patient did have some loose stools and small emesis. She is doing well now and denies nausea at this time. New IV started to L.hand. Patient is comfortable at this time. Original Note: Patient is A&Ox3. She has an NG tube to low intermittent suction that is putting out minimal bile drainage. IVF infusing and patient is tolerating well to l.ac. Bowel Tones are only present and hypoactive to l.lower quadrant. Other three quadrants are absent. Patient given 2mg of iv morphine with good pain control for 8/10 pain. She just left to have her small bowel swallow through.
[2020-06-04 12:55] VITALS: BP 157/79; PULSE 64; RESP 17; TEMP 37.1; O2SAT 93
--- NOTE | 2020-06-04 15:44 | CM.DANOTE ---
DCP Brief Assessment Patient is a 59 year old female who was admitted on 06/03/20 for ABD Pain. Pt has [facility] and [facility] Spenddown for insurance and her PCP is Dr. Armstrong. EMR was reviewed. Per Surgeon, pt with hx of Lap Alejandra and currently showing as SBO and is NPO with NG tube waiting for Small Bowel Follow through today. SW attempted bedside assessment but pt urgently needed restroom and was unsafely trying to get out of bed and SW alerted [employer] and RN and will attempt assessment later. Plan: SW to follow for bedside assessment to determine pt's d/c planning needs and barriers to discharge. REJI Babin
[2020-06-04 15:50] VITALS: BP 140/77; PULSE 63; RESP 20; TEMP 36.3; O2SAT 100
--- NOTE | 2020-06-04 18:12 | PC.NURSE ---
Addendum entered by Sonya Price R.N. 06/04/20 21:31: Taking oral clear and full liquids without difficulty. No GI or abdominal concerns or complaints verbalized. Addendum entered by Sonya Price R.N. 06/04/20 18:42: Dr. Pope checks in with this medical writer. IV fluids to be stopped and pt advanced this evening to full liquid diet. Original Note: Pt awake, alert resting quietly in bed. Admits to abdominal pain 5/10, and describes as steady in nature, but refuses analgesia. Denies nausea. Admits to frequent loose stools s/p small bowel follow through as per dayshift report. BL calf scd's replaced. Pt is able to ambulate to bathroom to toilet self and provides own pericare. Abdomen is soft and slightly puffy. Positive bowel tones in all four quadrants.
[2020-06-04] MEDS: SODIUM CHLORIDE 0.9% FLUSH 10 ML IV ×2 (18:45→23:42)
[2020-06-04 20:02] VITALS: BP 127/72; PULSE 60; RESP 20; TEMP 36.2; O2SAT 99
[2020-06-04 23:48] VITALS: BP 111/58; PULSE 57; RESP 16; TEMP 36.2; O2SAT 99
--- NOTE | 2020-06-04 23:56 | PC.NURSE ---
Addendum entered by Susanna Aldana R.N. 06/05/20 05:45: Complains of 8/10 abdominal pain (intermittently sharp); medicated with Morphine. Original Note: Patient is alert and oriented. Breath sounds CTA with RA sat of 99%. HRR. Denies nausea. BT present and abdomen is soft; does have tenderness in upper abdomen. States abdominal pain is 5/10 but declines pain medication. Voiding without dysuria, frequency or urgency. Is able to move self in bed. Up to bathroom with SBA. Wearing bilateral calf SCD's but after being up to bathroom declined to have them put back on despite education re: DVT prevention. Fall risk score is moderate; bed alarm is activated.
[2020-06-05 05:00] VITALS: BP 115/62; PULSE 53; RESP 18; TEMP 36.3; O2SAT 99
[2020-06-05 05:41] LABS: Add Manual Diff / Slide Review NO; Basophils Absolute Auto 100 /uL (0-100); Basophils Percent Auto 0.9 % (0-2); Eosinophils Absolute Auto 100 /uL (0-450); Eosinophils Percent Auto 1.1 % (2-4); Hematocrit 35.7 % (36-46); Hemoglobin 11.8 g/dL (12.0-16.0); Lymphocytes Absolute Auto 2600 /uL (1100-4500); Lymphocytes Percent Auto 28.2 % (25-40); Mean Corpuscular HGB Conc 33.1 % (30-36); Mean Corpuscular Volume 93.6 fL (80-100); Monocytes Absolute Auto 700 /uL (0-900); Monocytes Percent Auto 7.2 % (3-14); Neutrophils Absolute Auto 5700 /uL (1500-7000); Neutrophils Percent Auto 62.6 % (50-75); Platelet Count 211 X10^3/uL (150-400); Red Blood Cell Count 3.82 X10^6/uL (4.0-5.2); Red Cell Distribution Width 13.8 % (11.6-14.8); White Blood Cell Count 9.1 X10^3/uL (4.5-11.0)
[2020-06-05] MEDS: MORPHINE 2 MG/ML INJ IV (05:42)
[2020-06-05] MEDS: SODIUM CHLORIDE 0.9% FLUSH 10 ML IV ×2 (05:42→09:41)
[2020-06-05 05:53] LABS: Blood Urea Nitrogen 11 mg/dL (7-17); Calcium 8.1 mg/dL (8.4-10.2); Carbon Dioxide 26 mmol/L (22-32); Chloride 112 mmol/L (98-107); Estimated Glomerular Filt Rate > 60.0 mL/min (>60); Glucose 81 mg/dL (70-100); HEMOLYSIS < 15 (0-50); Magnesium 2.1 mg/dL (1.6-2.3); Potassium 3.4 mmol/L (3.4-5.1); Sodium 140 mmol/L (137-145)
[2020-06-05 09:00] VITALS: BP 111/64; PULSE 65; RESP 16; TEMP 36.3; O2SAT 99
[2020-06-05] MEDS: POTASSIUM CHLORIDE 20 MEQ TAB 40 MEQ PO (09:27)
[2020-06-05] MEDS: HEPARIN 5,000 UNIT/ML VIAL 5000 UNIT SUBCUT (09:28)
[2020-06-05] MEDS: PEG3350/SOD SULF,BICARB,CL/KCL 4,000 ML SOLUTION 4000 ML PO (10:53)
[2020-06-05] MEDS: FAMOTIDINE 20 MG/50 ML PIGGYBACK 200 MG IV ×2 (11:34→23:32)
--- NOTE | 2020-06-05 11:45 | PC.NURSE ---
Addendum entered by Matthew Sanchez R.N. 06/05/20 13:37: Dr. Pope came to assess and see patient again, after patient's episode/concerns. Patient agrees to try drinking golytely today per Dr. Pope ok to attempt to continue as planned and see how patient tolerates. Patient tolerating well at this time, no complaints. Also drinking clear liquids at this time and tolerating without nausea or upset stomach at this time. Telemetry dc'd by Dr. Pope. Call light within reach. Addendum entered by Matthew Sanchez R.N. 06/05/20 11:58: Of note, patient stopped drinking golytely after first half glass with occurence of symptoms, and declines to drink. Dr. Pope notified, shes states she can continue with upper scope tomorrow without colonoscopy. Original Note: Patient started her golytely prep as ordered. After drinking half of her first cup, patient reported new symptoms she describes as hard to explain, but it feels like that is stuck in the right side of my neck. Patient further attempted to sip golytely and felt like she was not able to swallow it on the right side but that she was swallowing it ok on the left. Patient then sips water without difficulty. Patient then became tearful, stating she felt short of breath and asked this RN not to leave the room or leave her alone. Patient wanted to lay back in bed, rubbing her neck and her chest. BP 158/90, HR 60, spo2 100% on room air. This RN asked coordinator to stay with patient while calling the MD. Patient then reports heaviness across her chest and in epigastric area. Stat EKG obtained. This RN spoke to Dr. Pope and notified her of symptoms/situation. EKG shown to Dr. Etienne per her request for evaluation. Dr. Etienne suggests telemetry and is communicating with Dr. Pope regarding possible need for consultation if symptoms continue/ re- occur. Patient resting in bed at this time, trying to relax. Call light within reach. Will continue to monitor.
--- NOTE | 2020-06-05 12:25 | CM.DANOTE ---
DCP Assessment: EMR Reviewed: Patient is a 59 yr old female who was admitted for SBO. PCP is Dr. Armstrong. CM/RN met with patient at the bedside and explained role. Patient was alert and oriented x3 but was easily distracted due to abdominal pain. Patient currently lives alone and does not have anyone around to help at D/C. patient is independent with all ADL's and drives [place]. patient still complaining of abdominal pain 5/10 and was finding it difficult to talk with CM. Patients nurse was in the room. I: Medicare and medicaid senddown program Plan: D/C home when medically stable. NO identified D/C planning needs noted at this time. Cm department will follow to assist with any new d/c plans that may arise. Shama Meek RN. Discharge Planning/Care Management CM Discharge Assessment Start: 06/05/20 12:24 Freq: Status: Active Protocol: Document 06/05/20 12:24 HS (Rec: 06/05/20 12:25 HS [id number]) Discharge Planning Assessment Assigned Dispatch Coordinator Shama Meek RN Advance Directives? No History Provided By Patient Has Patient been admitted in last 30 No days? Prior Living Arrangements House Household Members none Type of transporation used prior to Drives own vehicle admit Independent with ADL's Yes Is patient alert and oriented? Yes Caregiver for Another No DME Already Rented / Owned FWW / Walker,Cane Discharge Plan Home Referrals Initiated None needed Whiteboard Updated in Patient Room with Yes name and ext. # of Dispatch Coordinator Review Status In Process Next Review Type Continued Stay Review
--- NOTE | 2020-06-05 15:18 | P.PN_ITS ---
Subjective Subjective Date Patient Seen: 06/05/20 Time Patient Seen: 15:19 Interval history: Patient states she is feeling better, is passing gas and stool, but continues to have epigastric pain. Exam Vital Signs (past 8 hours): - 06/05/20 09:00 Temperature 97.4 F L Pulse Rate 65 Respiratory Rate 16 Blood Pressure 111/64 Pulse Oximetry 99 Oxygen Delivery Method Room Air Oxygen Flow Rate 0 Narrative Exam Narrative: GENERAL: Alert. Moderately uncomfortable. Appears stated age. Answers questions promptly and appropriately. Vital signs noted. HENT: Normocephalic, atraumatic. Hearing intact. EYES: Conjunctiva pink, sclera white, no periorbital swelling. CARDIOVASCULAR: Regular rate. No pedal edema. RESPIRATORY: Non-tachypneic, breathing comfortably on room air. GASTROINTESTINAL: Abdomen soft; rounded, slightly distended, mild epigastric tenderness to palpation GENITALURINARY: No flank tenderness. MUSCULOSKELETAL: Equal tone and mass bilaterally. SKIN: Warm, dry, soft, appropriate color for ethnicity. No other lesions, rashes, or wounds. NEURO: Alert and Oriented X 3. No gross sensory deficits, or cognitive issues. PSYCH: Appropriate affect and mood. Objective Labs Result Diagrams: 06/05/20 05:20 06/05/20 05:20 Labs: Laboratory Results - last 24 hr 06/05/20 06/05/20 05:20 05:20 WBC 9.1 RBC 3.82 L Hgb 11.8 L Hct 35.7 L MCV 93.6 MCH 31.0 MCHC 33.1 RDW 13.8 Plt Count 211 Neut % (Auto) 62.6 Lymph % (Auto) 28.2 [place] % (Auto) 7.2 Eos % (Auto) 1.1 L Baso % (Auto) 0.9 Neut # (Auto) 5700 Lymph # (Auto) 2600 [place] # (Auto) 700 Eos # (Auto) 100 Baso # (Auto) 100 Sodium 140 Potassium 3.4 Chloride 112 H Carbon Dioxide 26 BUN 11 Creatinine 0.55 Estimated GFR > 60.0 BUN/Creatinine Ratio 20.0 Glucose 81 Calcium 8.1 L Magnesium 2.1 Assessment & Plan Assessment and plan (1) SBO (small bowel obstruction): Status: Acute (2) Small bowel stricture: Status: Acute Assessment & Plan narrative: 59 yo woman with history of lap constance, never had a colonoscopy, came into ER with abdominal pain, CT consistent with SBO with suspicion of IBD. Had normal small-bowel follow-through yesterday. Has a passing gas and stool. Has been tolerating full liquid diet. She is complaining of ongoing epigastric pain, which is worse with eating. We discussed potentially having an EGD and colonoscopy as an outpatient, or going ahead and prepping her doing it is an inpatient given her ongoing pain and no clear diagnosis to explain her obstructive symptoms. She would like to go ahead with the EGD and colonoscopy during this admission, as she is concerned about going home with the amount of pain that she is in. We will go ahead and do prep today, and put her on the schedule for scopes tomorrow. Plan: Clear liquid diet GoLYTELY 4 L Replete electrolytes NPO after midnight Schedule for EGD and colonoscopy tomorrow Addendum: After starting to take the prep, she had an episode of difficulty swallowing, throat pain, chest pain, epigastric pain. An EKG was done, which was reviewed by Dr. Etienne. felt that the EKG was unremarkable, and that the symptoms were likely from anxiety. I would open saw the patient, and by that point she was feeling better and no longer having the same symptoms. She said that she felt like it was the same epigastric pain which was exacerbated by drinking the GoLYTELY to quickly. I offered to stop prepping her, and just do an EGD tomorrow and try again for the colonoscopy later on. The patient would like to go ahead with the prep, and still go ahead with colonoscopy tomorrow if possible. I told her to take her time with the prep, mixed it with something more palatable like juice, drink through a straw, or use ice in the prep to make it more palatable. If she has any more of these episodes, we will likely discontinue the prep and just do the EGD tomorrow. Addendum: I called back to the nurse about an hour after the above addendum, and she said that the patient was tolerating the prep now and doing well. We will make her NPO at midnight, will add some IV fluids, and consent her for EGD and colonoscopy. We will recheck CBC and electrolytes in the morning. Risks and benefits of screening colonoscopy and EGD and possible biopsy or polypectomy were discussed with the patient including risk of bleeding, pe rforation, need for additional procedures, risks of anesthesia. The patient desires to proceed with the colonoscopy and EGD procedures. COVID-19 COVID-19 status: Negative Result date/Date tested (Pos, Neg/Pending): 06/03/20 Time Spent With Patient Time with patient: 15-24 minutes Quality VTE Deep Vein Thrombosis/Pulmonary Embolism Present on Admission: No
[2020-06-05 15:20] VITALS: BP 142/90; PULSE 58; RESP 17; TEMP 36.2; O2SAT 98
[2020-06-05] MEDS: KCL 40 MEQ IN NS 1,000 ML 100 MEQ IV (17:44)
--- NOTE | 2020-06-05 18:00 | PC.NURSE ---
Addendum entered by Sonya Price R.N. 06/05/20 23:29: Pt has consumed all of golytely this evening shift. No complaints of abdominal pain or nausea. Stool now clear orange in color. Pt has taken juice and jello this evening. Addendum entered by Sonya Price R.N. 06/05/20 21:27: 700 cc's brown liquid/watery stool with very little particulate matter. Pt reports urine mixed with stool inadvertently. Consumed nearly all of golytely at this time. Pt continues to have consent for tomorrow's procedure in possession unsigned. Addendum entered by Sonya Price R.N. 06/05/20 19:30: IV fluids infusing as ordered to left hand iv site without difficulty. Pt taking golytely. Consent presented to pt and pt's response is surprise re procedure in the a.m. Discussed with pt plan for egd and colonoscopy with sedation. Pt desires consent form to review and this was provided. Instructed pt to alert staff when using bathroom to void or stool so staff can monitor. Original Note: Pt in bathroom and takes some time with own personal pericare in bathroom. Emerges and states desires shower prior to iv fluids being instituted. This was facilitated, but also informed pt need to start iv fluids as per MD order. Also informed pt has until midnight to finish golytely. Pt has approximately half of the container yet to consume. Pt denies abdominal pain and denies nausea. States taking clear liquid diet along with golytely prep. Stool is liquid in nature and green in color in bathroom. Informed pt nothing by mouth after midnight and bowel prep needs to be completed prior to that time. Pt acknowledges understanding and states will do so. Up ad daniel independently in room.
[2020-06-05 19:45] VITALS: BP 170/92; PULSE 58; RESP 17; TEMP 36.1; O2SAT 99
--- NOTE | 2020-06-05 23:45 | PC.NURSE ---
Patient is alert and oriented. Breath sounds CTA with RA sat of 100%. HRR but occasionally bradycardic in 50's but apical is 60. Denies nausea. BT hypoactive; having watery light brown stool related to Go-Lytely prep. Abdomen is soft but stacker tender in upper quads with palpation. Denies dysuria, frequency or urgency. Able to turn self in bed and has been getting up independently. Discussed use of bed alarm and patient declines to have alarm on; verbalizes understanding to call staff for assist when out of bed. Bilateral calf SCD's applied at start of shift but now requests they be removed; reminded to ankle wave. Fall risk score is moderate.
[2020-06-05 23:48] VITALS: BP 157/84; PULSE 54; RESP 18; TEMP 36.2; O2SAT 100
[2020-06-06] VITALS (14 sets, daily range): BP systolic 98–166; BP diastolic 57–95; PULSE 47–59; RESP 14–20; TEMP 36–37.3; O2SAT 94–100; BMI 23.2
--- NOTE | 2020-06-06 | PATH_ITS ---
[facility] Accession Number: [id number] . 01 Material submitted: . PART A: duodenum - DUODENUM PART B: stomach - GASTRIC ANTRUM PART C: stomach - GASTRIC BODY PART D: esophagus - DISTAL ESOPHAGUS PART E: esophagus - MID ESOPHAGUS PART F: ileum - TERMINAL ILEUM PART G: colon - RANDOM DESCENDING COLON PART H: colon - COLON POLYP 25CM . 01 Clinical history: . ABD PAIN . 02 Diagnosis: A. Duodenum, Biopsy: Duodenal mucosa with features of peptic duodenitis, including active inflammation and patchy gastric surface foveolar metaplasia. Negative for intraepithelial lymphocytosis or villus blunting. Negative for dysplasia or malignancy. . B. Stomach, Antrum, Biopsy: Antral mucosa with intestinal metaplasia. Negative for Helicobacter by immunohistochemistry. Negative for dysplasia and malignancy. . C. Stomach, Body, Biopsy: Body type mucosa with no diagnostic abnormality. Negative for Helicobacter by immunohistochemistry. Negative for intestinal metaplasia. Negative for dysplasia and malignancy. . D-E. Distal Esophagus, Mid Esophagus, Biopsies: Squamous epithelium with no diagnostic abnormality. Intraepithelial eosinophils are not increased. Negative for dysplasia and malignancy. . F. Terminal Ileum, Biopsy: Small bowel mucosa with no diagnostic abnormality. Negative for active inflammation, dysplasia, and malignancy. . G. Random Descending Colon, Biopsy: Colonic mucosa with no diagnostic abnormality. Negative for active, chronic, and microscopic colitis. Negative for dysplasia and malignancy. . H. Colon, Polyp at 25 cm, Biopsy: Tubular adenoma. [facility] 06/11/2020 1659 Local . 02 Electronically signed: . Margarita Franklin MD, Pathologist NPI- [id number] . 01 Gross description: . Part A: DUODENUM: Received in formalin are 2 fragment(s) of trimble, soft tissue measuring 0.2 x 0.1 x 0.1 cm to 0.1 x 0.1 x 0.1 cm submitted entirely in 1 cassette(s) Part B: GASTRIC ANTRUM: Received in formalin is 1 fragment(s) of trimble, soft tissue measuring 0.4 x 0.1 x 0.1 cm submitted entirely in 1 cassette(s) Part C: GASTRIC BODY: Received in formalin is 1 fragment(s) of trimble, soft tissue measuring 0.3 x 0.1 x 0.2 cm submitted entirely in 1 cassette(s) Part D: DISTAL ESOPHAGUS: Received in formalin is 1 fragment(s) of trimble, soft tissue measuring 0.2 x 0.2 x 0.1 cm submitted entirely in 1 cassette(s) Part E: MID ESOPHAGUS: Received in formalin is 1 fragment(s) of trimble, soft tissue measuring 0.4 x 0.2 x 0.1 cm submitted entirely in 1 cassette(s) Part F: TERMINAL ILEUM: Received in formalin are 3 fragment(s) of trimble, soft tissue measuring 0.3 x 0.3 x 0.2 cm to 0.3 x 0.1 x 0.1 cm submitted entirely in 1 cassette(s) Part G: RANDOM DESCENDING COLON: Received in formalin are 2 fragment(s) of trimble, soft tissue measuring 0.3 x 0.3 x 0.2 cm to 0.2 x 0.2 x 0.2 cm submitted entirely in 1 cassette(s) Part H: COLON POLYP 25CM: Received in formalin are 2 fragment(s) of trimble, soft tissue measuring 0.6 x 0.3 x 0.1 cm to 0.3 x 0.1 x 0.1 cm submitted entirely in 1 cassette(s) /[facility] 06/07/2020 0916 Local . 02 Microscopic: . B-C. Immunohistochemical stains were performed on blocks B and C in order to evaluate for Helicobacter organisms and are both negative. The control stain showed appropriate reactivity. . * This test was developed and its performance characteristics determined by [facility]. It has not been cleared or approved by the U.S. Food and Drug Administration. The FDA has determined that such clearance or approval is not necessary. This test is used for clinical purposes. It should not be regarded as investigational or for research. . 02 Pathologist provided ICD-10: D12.6, K56.609, R10.9 . 02 CPT . 597998, 899249, 800748, 928542, 343347, 674337, 181765, 686335, [id number] Performed at: 01 [facility] [address] [id number] MD Fabian Talamantes MD Phone: [phone] Performed at: [id number] [place], [place] [id number] MD Margarita Franklin MD Phone: [phone]
[2020-06-06] MEDS: KCL 40 MEQ IN NS 1,000 ML 100 MEQ IV (04:47)
[2020-06-06 05:38] LABS: Add Manual Diff / Slide Review NO; Basophils Absolute Auto 0 /uL (0-100); Basophils Percent Auto 0.2 % (0-2); Eosinophils Absolute Auto 100 /uL (0-450); Eosinophils Percent Auto 0.8 % (2-4); Hematocrit 35.4 % (36-46); Hemoglobin 11.8 g/dL (12.0-16.0); Lymphocytes Absolute Auto 3300 /uL (1100-4500); Mean Corpuscular HGB Conc 33.2 % (30-36); Mean Corpuscular Hemoglobin 31.1 PG (26-34); Mean Corpuscular Volume 93.6 fL (80-100); Monocytes Absolute Auto 600 /uL (0-900); Monocytes Percent Auto 7.2 % (3-14); Neutrophils Absolute Auto 4900 /uL (1500-7000); Neutrophils Percent Auto 54.8 % (50-75); Platelet Count 212 X10^3/uL (150-400); Red Blood Cell Count 3.78 X10^6/uL (4.0-5.2); Red Cell Distribution Width 13.9 % (11.6-14.8); White Blood Cell Count 8.9 X10^3/uL (4.5-11.0)
[2020-06-06 05:48] LABS: BUN Creatinine Ratio 15.2 (6-22); Blood Urea Nitrogen 7 mg/dL (7-17); Calcium 8.3 mg/dL (8.4-10.2); Carbon Dioxide 28 mmol/L (22-32); Chloride 113 mmol/L (98-107); Estimated Glomerular Filt Rate > 60.0 mL/min (>60); Glucose 89 mg/dL (70-100); HEMOLYSIS < 15 (0-50); Potassium 3.8 mmol/L (3.4-5.1); Sodium 142 mmol/L (137-145)
--- NOTE | 2020-06-06 08:31 | PC.NURSE ---
Addendum entered by Jenny Dempsey R.N. 06/06/20 12:22: Dr. Pope called and update given at 1220. Discharge instructions for Gastritis and Gastric Ulcer to give to pt. Follow up in once in 1 week. Pt will discharge today. Will talk with pt about discharge ride. Addendum entered by Jenny Dempsey R.N. 06/06/20 12:16: Pt back to room at 1040, A&OX4, denies pain or discomfort, states feeling much better compared to yesterday. Denies nausea. Up to BR to void qs, steady gait, denies light-headed or dizziness. HR 51 bpm on monitor, pt asymptomatic. 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 Addendum entered by Jenny Dempsey R.N. 06/06/20 10:24: Report rec'd from Mirian in PACU at 1023 on current pt status. Original Note: Day Shift- Earrings and rings taped. Pt has not signed consent for treatment yet, procedure team aware. Pt had her glasses on during transport. PIV S/L;d. Pt left unit via transport wheelchair in no distress at 0830.
[2020-06-06] MEDS: SODIUM CHLORIDE 0.9% 1,000 ML 100 ML IV (08:39)
--- NOTE | 2020-06-06 09:05 | P.OP.ENDO_ITS ---
Operative Date/Time/Diagnoses Date of procedure: 06/06/20 Time of procedure: 09:05 Pre-op diagnosis: epigastric pain, thickened bowel, suspected IBD, never had screening colonoscopy Post-op diagnosis: other (normal appearing terminal ileum and colon; small polyp at 25cm; erosive duodenitis and gastritis) Procedure & Clinicians Study performed: Esophagogastroduodenoscopy Biopsies of duodenum, gastric antrum, gastric body, and distal esophagus, mid esophagus for pathology and culture with cold forceps Colonoscopy Biopsies of terminal ileum with cold forceps, random biopsies of descending colon with cold forceps, colon polyp removed with cold forceps at 25 cm Procedural sedation by the endoscopist Same procedure as scheduled: Yes Indications: 59 yo woman with chronic epigastric pain, and thickened bowel on CT scan with suspected IBD, has never had a screening colonoscopy Surgeon: Lauryn Pope Procedure Notes SCOAP/Timeout: Performed Procedure in detail: The patient was brought to the room and placed in left lat eral decubitus position with all bony prominences padded. A bite block was positioned in the patient's mouth to protect the lips, teeth, and tongue for the procedure. A time-out was performed and then the patient was given procedural sedation starting with [3] mg of Versed and [100] mcg of fentanyl. Vitals were monitored throughout the procedure and remained stable. Once adequately sedated, the procedure was begun. The lubricated gastroscope was passed through the bite block and across the tongue and into the esophagus without incident. A tubular view of the esophagus was maintained as the scope was advanced through the esophagus and into the stomach. The scope was advanced through the stomach and to the pylorus. The scope was gently popped through the pylorus and into the duodenal bulb. The scope was flexed and advanced into the second and third portions of the duodenum. The duodenum and duodenal bulb were markedly erythematous with erosions consistent with duodenitis and duodenal ulcers.. The scope was withdrawn into the stomach. The stomach had some erythema and erosions consistent with gastritis and gastric ulcers. Biopsies were taken of the duodenum and the gastric mucosa. The scope was retroflexed and the gastric cardia was examined. There was no significant hiatal hernia, but there were some erosions along the gastric cardia, likely from the NG tube the patient had a few days ago. The scope was then straightened, and withdrawn into the esophagus. The Z-line [appeared normal]. The distal esophagus was biopsied. The scope was then withdrawn through the esophagus with a tubular view. Midesophagus was biopsied to rule out infectious esophagitis. The scope was then withdrawn from the patient, and attention was turned to the colonoscopic exam. A rectal exam was performed revealing [no abnormalities]. The colonoscope was then introduced to the rectum and advanced to the cecum in the usual fashion. []The cecum was identified by the appendiceal orifice, the mucosal tri-fold, and the ileocecal valve. The scope was advanced into the terminal ileum for about 25 cm. The ileum appeared mostly normal, with a slight bit of inflammation. Biopsies were taken. The scope was then retracted while rotating side to side and examining each mucosal fold. [Random biopsies were taken from the descending colon to rule out microscopic colitis. Small polyp was seen at 25 cm, and was removed with cold forceps.] At the conclusion of the procedure retroflexion was performed and [small grade 1-2 internal hemorrhoids without stigmata of bleeding were seen]. The scope was then withdrawn from the rectum the procedure was concluded. The patient tolerated the procedure well and was transferred to the PACU in stable condition. Scope withdrawal time: 10 Sedation minutes: 43 Findings: duodenal ulcer, gastric ulcer, gastritis and polyp Specimen(s): other (Biopsies of duodenum, gastric antrum, gastric body, distal esophagus, mid esophagus, terminal ileum, descending colon, colon polyp from 25 cm) Complications: none Impression: Significant gastritis and duodenitis, normal appearing colon and terminal ileum, small benign-appearing polyp from rectum Post-procedure Recommendations: Other recommendation (Follow-up pending biopsy results) Follow up: weeks (Patient will follow up in my office within 2 weeks after discharge from the hospital) Disposition: PACU
--- NOTE | 2020-06-06 09:05 | PM.PREOP ---
Pre-operative Note COVID-19 COVID-19 status: Negative Result date/Date tested (Pos, Neg/Pending): 06/03/20 Interval Note History & Physical reviewed/Exam performed by Physician: Yes Changes to H&P: No ASA Class (for procedural sedation): II
[2020-06-06] MEDS: LIDOCAINE 4% SOLN 50 ML 20 ML TOP (09:13)
[2020-06-06] MEDS: fentaNYL 250 MCG/5 ML INJ IV (09:14)
[2020-06-06] MEDS: MIDAZOLAM 5 MG/5 ML VIAL IV (09:14)
--- NOTE | 2020-06-06 10:24 | SUR.PHASEI ---
0958 -Received to PACU after MAC anesthesia. Airway patent, self maintained. 1024 - Report called to DEMETRIO Alvarado. Will transfer to 211. Eye glasses and partial denture with pt.
[2020-06-06] MEDS: SODIUM CHLORIDE 0.9% FLUSH 10 ML IV ×2 (10:49→14:03)
--- NOTE | 2020-06-06 12:25 | PM.DS.1 ---
History of Present Illness History of Present Illness Chief complaint: ABD Pain Narrative: 59 yo woman with history of cholecystectomy, came into the ER today with one day of diffuse colicky upper abdominal pain and nausea without vomiting. CT scan in ER, looks like SBO with thickened distal ileum, possible IBD. Low grade WBC 11.3, CRP and ESR are normal. Stool calprotectin is pending. She has had similar episodes of pain before. She denies any history of melena, hematochezia, or chronic diarrhea. She has never had a colonoscopy. She denies any significant medical history. ROS: GENERAL: Denies fever, chills, malaise, or wt. loss. HENT: No head trauma, sore throat, or dysphagia. EYES: No loss of vision, double vision, eye pain, or irritation. CARDIOVASCULAR: No chest pain, palpitations, or orthopnea. RESPIRATORY: No shortness of breath or cough. GASTROINTESTINAL: Complains of abdominal pain, see HPI GENITOURINARY: No flank pain, urinary incontinence, hesitancy, frequency, or dysuria. MUSCULOSKELETAL: No pain, weakness, or trauma. INTEGUMENTARY: No rash, lesions, or pruritus. NEURO: No numbness, tingling, memory loss, confusion, or headaches. PSYCH: No behavior or mood changes. PE: GENERAL: Alert, uncomfortable appearing. Appears stated age. Answers questions promptly and appropriately. Vital signs noted. HENT: Normocephalic, atraumatic. Hearing intact. EYES: Conjunctiva pink, sclera white, no periorbital swelling. CARDIOVASCULAR: Regular rate. No pedal edema. RESPIRATORY: Non-tachypneic, breathing comfortably on room air. GASTROINTESTINAL: Abdomen soft, rounded, mildly distended, diffuse mild TTP; no masses GENITALURINARY: No flank tenderness. MUSCULOSKELETAL: Equal tone and mass bilaterally. SKIN: Warm, dry, soft, appropriate color for ethnicity. No other lesions, rashes, or wounds. NEURO: Alert and Oriented X 3. No gross sensory deficits, or cognitive issues. PSYCH: Appropriate affect and mood. Discharge Providers Provider Date of admission: 06/03/20 15:08 Discharge Date: 06/06/20 Consults: 06/03/20 15:22 Consult to AUTO PAINTER - Line Maintenance Routine Comment: 06/06/20 08:50 Consult to Respiratory Therapy Evaluate & Treat Comment: Physician Instructions: Evaluate and treat Discharge provider: Lauryn Pope MD Summary Hospital Course Discharge Diagnosis: Gastritis, duodenitis Hospital Course: The patient was admitted with SBO and small bowel thickening on CT scan. NGT was used to decompress the bowel. On the following day, SBFT was normal, NGT was removed, and clear diet was started. She c/o persistent epigastric pain. I recommended EGD and colonoscopy to evaluate for crohns. She was found to have severe gastritis and duodenitis, but no thickening of the distal ileum or findings consistent with crohns were seen. Biopsies were taken. Status at Discharge Cognitive/behavioral status at discharge: at baseline, oriented Functional status at discharge: independent ambulation Overall status at discharge: patient is progressing back to baseline Time Spent with Patient Time spent: Greater than 30 minutes Exam Vital Signs (past 8 hours): - 06/06/20 04:57 06/06/20 08:25 06/06/20 08:42 Temperature 97.5 F L 96.8 F L 97 F L Pulse Rate 48 L 50 L 50 L Respiratory Rate 16 16 20 Blood Pressure 140/60 156/75 H 166/85 H Pulse Oximetry 100 100 100 06/06/20 09:58 06/06/20 10:09 06/06/20 10:10 Temperature 99.1 F Pulse Rate 52 L 56 L 52 L Respiratory Rate 14 14 14 Blood Pressure 104/62 110/78 98/61 Pulse Oximetry 100 100 100 06/06/20 10:14 06/06/20 10:18 06/06/20 10:23 Temperature 98.4 F Pulse Rate 59 L 52 L 50 L Respiratory Rate 16 14 14 Blood Pressure 117/68 124/73 128/72 Pulse Oximetry 100 100 98 06/06/20 10:28 06/06/20 10:45 06/06/20 11:15 Temperature 97.2 F L 96.8 F L Pulse Rate 53 L 58 L 47 L Respiratory Rate 16 16 16 Blood Pressure 121/57 L 114/65 152/77 H Pulse Oximetry 100 97 94 06/06/20 11:45 Temperature 98.1 F Pulse Rate 48 L Respiratory Rate 16 Blood Pressure 149/95 H Pulse Oximetry 99 Oxygen Delivery Method Room Air Oxygen Flow Rate 0 Narrative Exam Narrative: PE: GENERAL: Alert, comfortable. Appears stated age. Answers questions promptly and appropriately. Vital signs noted. HENT: Normocephalic, atraumatic. Hearing intact. Oral mucosa is pink and moist. EYES: Conjunctiva pink, sclera white, no periorbital swelling. CARDIOVASCULAR: Regular rate. No pedal edema. RESPIRATORY: Non-tachypneic, breathing comfortably on room air. GASTROINTESTINAL: Abdomen soft and non-distended; mild TTP in epigastrium GENITALURINARY: No flank tenderness. MUSCULOSKELETAL: Equal tone and mass bilaterally. SKIN: Warm, dry, soft, appropriate color for ethnicity. No other lesions, rashes, or wounds. NEURO: Alert and Oriented X 3. No gross sensory deficits, or cognitive issues. PSYCH: Appropriate mood and affect, normal intellect Objective Imaging CT scan - abdomen: Radiologist's impression: [address] [address] [address] Scan Report Signed Patient: Tricia Hankins [facility]#: [id number] : 2Acct:[id number] Age/Sex: 59 / FDate of Service: 06/03/20 Loc: ED Accession Number: [id number] Procedure: CT abdomen pelvis w con Ordering Provider: Marlena Dennis PROCEDURE: CT ABDOMEN PELVIS W CON INDICATIONS: Upper bilateral abd pain, hx cholecystectomy TECHNIQUE: After the administration of intravenous contrast, 5 mm thick sections acquired from the diaphragm to the symphysis. 5 mm coronal and sagittal reformats were acquired. For radiation dose reduction, the following was used: automated exposure control, adjustment of mA and/or kV according to patient size. COMPARISON: None. FINDINGS: Image quality: Excellent. ABDOMEN: Lung bases: Mild bibasilar atelectasis. No pleural effusion. Heart size is normal. Solid organs: Liver is normal in size and enhancement. Gallbladder is surgically absent. Biliary system is non dilated. Pancreas enhances normally. Spleen is normal in size and enhancement. Trace fluid adjacent to the spleen. No adrenal nodules. Kidneys demonstrate normal size and enhancement, without hydronephrosis. Left kidney inferior pole simple cyst. Peritoneum and bowel: Multiple dilated loops of small bowel in the lower abdomen and emanating from the terminal ileum. The terminal ileum demonstrates increased mural enhancement and surrounding inflammatory change. There is fecalization within these loops of small bowel. There are air-fluid levels. There is a secondary narrowing in the ileum, (4/22). The appendix is normal. Small duodenal diverticulum. There is a small amount of free fluid in the pelvis and abdomen. Nodes and vessels: No retroperitoneal or mesenteric adenopathy by size criteria. Aorta and inferior vena cava are normal in size. Moderate calcified and noncalcified atherosclerotic plaque. Miscellaneous: No ventral hernias. PELVIS: Genitourinary: Bladder is within normal limits. Uterus is unremarkable. Miscellaneous: No inguinal hernias or adenopathy. Bones: No suspicious bony lesions. No vertebral body compression fractures. IMPRESSION: Distal small bowel obstruction. Abnormal enhancement of the terminal ileum and possible small bowel stricture raises the possibility of Crohn's disease and as etiology for obstruction. Small volume of free fluid in the abdomen and pelvis. No pneumoperitoneum. Comment: Findings were discussed with Marlena Dennis at the time of dictation. Dictated by: Francesco Young M.D. on 06/03/2020 at 13:25 Approved by: Francesco Young M.D. on 06/03/2020 at 13:59 Abdominal x-ray: Radiologist's impression: [place] [address] XRay Report Signed Patient: Tricia Hankins [facility]#: [id number] : 2Acct:[id number] Age/Sex: 59 / FDate of Service: 06/04/20 Loc: VG512-0 Accession Number: [id number] Procedure: FL small bowel follow through Ordering Provider: Lauryn Pope MD PROCEDURE: FL SMALL BOWEL FOLLOW THROUGH INDICATIONS: SBO, diagnostic/therapeutic COMPARISON: None. FINDINGS: KUB: Preprocedural digital solutions architect film demonstrates a normal bowel gas pattern. No suspicious abdominal calcifications. Visualized solid organ contours appear normal. No suspicious bony abnormalities. Small bowel: There is normal transit time of barium through the small bowel. Small bowel loops are of normal caliber throughout. Mucosal folds are smooth and of normal thickness. No strictures, intraluminal masses, or extrinsic mass effects are noted. The terminal ileum is identified, and is normal in morphology. IMPRESSION: 1. Normal small bowel follow-through. 2. No dilated loops of small bowel. 3. No definite small bowel stricture or small bowel mass. 4. No small bowel wall thickening. Dictated by: Rebecca Montaño MD, PhD on 06/04/2020 at 12:27 Approved by: Rebecca Montaño MD, PhD on 06/04/2020 at 12:29 Labs Result Diagrams: 06/06/20 05:20 06/06/20 05:20 Labs: Laboratory Results - last 24 hr 06/06/20 06/06/20 05:20 05:20 WBC 8.9 RBC 3.78 L Hgb 11.8 L Hct 35.4 L MCV 93.6 MCH 31.1 MCHC 33.2 RDW 13.9 Plt Count 212 Neut % (Auto) 54.8 Lymph % (Auto) 37.0 [place] % (Auto) 7.2 Eos % (Auto) 0.8 L Baso % (Auto) 0.2 Neut # (Auto) 4900 Lymph # (Auto) 3300 [place] # (Auto) 600 Eos # (Auto) 100 Baso # (Auto) 0 Sodium 142 Potassium 3.8 Chloride 113 H Carbon Dioxide 28 BUN 7 Creatinine 0.46 L Estimated GFR > 60.0 BUN/Creatinine Ratio 15.2 Glucose 89 Calcium 8.3 L Magnesium 2.0 Discharge Assessment & Plan Assessment and Plan Assessment: Improved SBO symptoms; epigastric pain consistent wtih gastritis found on EGD. Plan of Treatment: Double dose PPI, follow up on biopsy results to rule out H pylori, and see pt in clinic. Discharge Plan Discharge Plan Patient Disposition: Home Discharge comment: You were admitted to the hospital because of a bowel obstruction. You were treated with bowel rest (nothing to eat) and nasogastric tube decompression of the bowel, gastrografin, and steroids. You had a colonoscopy and upper endoscopy that revealed a normal colon and the last part of your small intestine (called the distal ileum). The upper endoscopy revealed inflammation in your stomach, small intestine, and esophagus. This may be due to an infection or the use of NSAIDs such as Aleve and Ibuprofen. I recommend you take an acid blocking medication, and avoid Ibuprofen or Aleve. You may take Tylenol instead. Avoid taking more than 3000mg of Tylenol in a 24 hour period. Once the biopsy results return we will know whether you need to be treated for an infection in your stomach. Please call the [facility] office on Tuesday and make an appointment to see Dr. Pope in the office within the next 2 weeks. You need to take an acid blocking medication. A prescription will be sent to [facility] in [place] for that medication. Please take it twice daily as directed. Discharge orders & Medications Prescriptions: New omeprazole 40 mg capsule,delayed release(DR/EC) 40 mg PO BID Qty: 60 RF: 6 Follow up/Referrals: Lauryn Pope MD [Physician] - (Please call Dr. Pope's office on TuesdayJune 09, to make a follow up appointment to be seen within 1-2 weeks after discharge from the hospital.) Diet/Activity/Treatments Diet: Diet as Tolerated Diet comment: start with light, simple foods that are easy to digest Activity: Avoid making important decisions, driving a car, operating heavy machinery for 24 hours after sedation. Skin/Wound/Dressing Care Report to your healthcare provider any signs of infection, such as:: chills, fever, night sweats and increased pain Visit Report/Discharge Packet Instructions: DI for Gastritis, DI for Gastric Ulcer Stand Alone Forms: Colonoscopy Result: Isld Surg, EGD Result: Isld Surg Visit Report Forms: Patient Portal/API, Stroke Signs & Symptoms Discharges patient from system. Discharge Date/Time: 06/06/20 14:50 Quality VTE Deep Vein Thrombosis/Pulmonary Embolism Present on Admission: No
[2020-06-06] MEDS: PANTOPRAZOLE 40 MG VIAL IV (14:03)
--- NOTE | 2020-06-06 15:33 | PC.NURSE ---
Day Shift- Pt tolerating soft diet without further epigastric discomfort. Pt has water, juice, soup, turkey meat and cheese for lunch Discharge summary packet reviewed with pt, no further questions regarding hospitalization. Aware to picker box operator her prescriptions from [facility] in [place]. Pt states is ready for discharge. Pt's ex- will be picking up pt upon discharge. Pt states has all her personal belongings. Pt had questions regarding Estate planning, changing will. Original though was pt wanting to change her POA, therefore pamphlet/form given for POA. Instructed pt that this form is only for POA for Healthcare directives, not for estate planning. For estate planning, referred pt to [facility] [employer], [employer], or accounts payable administrator for further information. Pt left unit in no distress at 1450 via wheelchair with this RN. Pt's ex- was present to pick pt up. Pt aware to not make any legal decisions or operate vehicle for 24hours after procedure.
[2020-06-07 13:12] LABS: Calprotectin, Stool 26 ug/g (0-120)
== END 2020-06-06 14:50 | disposition home or self-care (01) | DRG 390 ==
LOC: ED 14:44 → AC 15:10
PROVIDERS: Admitting Provider Surgery; Emergency Provider Nurse Practitioner; Family Provider Family Medicine; Referring Provider Surgery; Visit Provider Surgery
PROC: 0DJ08ZZ Inspection of Upper Intestinal Tract, Via Natural or Artificial Opening Endoscopic (ICD-10-PCS; CPT 43235; principal; 2020-06-06 09:15)
PROC: 0DJD8ZZ Inspection of Lower Intestinal Tract, Via Natural or Artificial Opening Endoscopic (ICD-10-PCS; CPT 45378; 2020-06-06 09:15)
DX: K56.609 Unspecified intestinal obstruction, unspecified as to partial versus complete obstruction (principal); K29.70 Gastritis, unspecified, without bleeding; K29.80 Duodenitis without bleeding; K63.5 Polyp of colon; Z11.59 Encounter for screening for other viral diseases
CPT/HCPCS: 36415; 36592; 43239; 45380; 71045; 74177; 74250; 80048; 80053; 81003; 82550; 83690; 83735; 83993; 84145; 84484; 85025; 85651; 86140; 87070; 87075; 87176; 87205; 87635; 93005; 96361; 96374; 96375; 96376; 99152; 99153; 99222; 99232; 99285; C9113; J1644; J1885; J2250; J2270; J2405; J2920; J3010; J3480; Q9967

== ENCOUNTER → 2020-06-24 09:36 | Outpatient (CLI) | payer MEDICARE, MEDICAID, SELFPAY ==
[2020-06-03 17:43] VITALS: BMI 23.2
[2020-06-24 09:56] LABS: Hematocrit 43.4 % (36-46); Hemoglobin 14.6 g/dL (12.0-16.0); Mean Corpuscular HGB Conc 33.7 % (30-36); Mean Corpuscular Hemoglobin 31.1 PG (26-34); Mean Corpuscular Volume 92.4 fL (80-100); Platelet Count 317 X10^3/uL (150-400); Red Blood Cell Count 4.69 X10^6/uL (4.0-5.2); Red Cell Distribution Width 14.1 % (11.6-14.8); White Blood Cell Count 7.1 X10^3/uL (4.5-11.0)
== END ==
PROVIDERS: Family Provider Family Medicine; Referring Provider Surgery; Visit Provider Surgery
DX: R42 Dizziness and giddiness (principal); K29.90 Gastroduodenitis, unspecified, without bleeding
CPT/HCPCS: 36415; 85027; 99214

== ENCOUNTER → 2020-10-20 09:38 | Outpatient (CLI) | payer MEDICARE, MEDICAID, SELFPAY ==
[2020-06-03 17:43] VITALS: BMI 23.2
[2020-10-20 11:46] LABS: COVID19 -Nasal RAPID Negative (Negative)
== END ==
PROVIDERS: Family Provider Family Medicine; PCP Family Medicine; Visit Provider Surgery
DX: Z01.812 Encounter for preprocedural laboratory examination (principal); Z20.828 Contact with and (suspected) exposure to other viral communicable diseases
CPT/HCPCS: 87635; 99211

== ENCOUNTER 2020-10-21 13:05 | Day surgery (SDC) | payer MEDICARE, MEDICAID, SELFPAY ==
[2020-06-03 17:43] VITALS: BMI 23.2
[2020-10-21] VITALS (8 sets, daily range): BP systolic 87–102; BP diastolic 40–72; PULSE 59–64; RESP 12–18; TEMP 36.2–36.7; O2SAT 95–98; BMI 23.0
--- NOTE | 2020-10-21 | PATH_ITS ---
[facility] Accession Number: [id number] . 01 Material submitted: . PART A: duodenum - DUODENUM PART B: gastrointestinal site - STOMACH PART C: esophagus - ESOPHAGUS . 01 Clinical history: . SDC . 02 Diagnosis: A. Duodenum, Biopsy: Duodenal mucosa with no diagnostic abnormality. Negative for active inflammation, features of sprue, dysplasia and malignancy. . B. Stomach, Biopsy: Chronic gastritis with intestinal metaplasia. Negative for Helicobacter by immunohistochemistry. Negative for dysplasia and malignancy. . C. Esophagus, Biopsy: Squamous epithelium with no diagnostic abnormality. Intraepithelial eosinophils are not increased. Negative for dysplasia and malignancy. [facility] 10/24/2020 1616 Local . 02 Electronically signed: . Margarita Franklin MD, Pathologist NPI- [id number] . 01 Gross description: . Part A: DUODENUM: Received in formalin are 2 fragment(s) of trimble, soft tissue measuring 0.2 x 0.2 x 0.1 cm to 0.2 x 0.2 x 0.1 cm submitted entirely in 1 cassette(s) Part B: STOMACH: Received in formalin are 2 fragment(s) of trimble, soft tissue measuring 0.3 x 0.3 x 0.1 cm to 0.3 x 0.1 x 0.2 cm submitted entirely in 1 cassette(s) Part C: ESOPHAGUS: Received in formalin is 1 fragment(s) of trimble, soft tissue measuring 0.1 x 0.1 x 0.1 cm submitted entirely in 1 cassette(s) /[facility]BJ 10/22/2020 1047 Local . 02 Microscopic: . B. An immunohistochemical stain was performed to evaluate for Helicobacter organisms and is negative. The control stain showed appropriate reactivity. . * This test was developed and its performance characteristics determined by [facility]. It has not been cleared or approved by the U.S. Food and Drug Administration. The FDA has determined that such clearance or approval is not necessary. This test is used for clinical purposes. It should not be regarded as investigational or for research. . 02 Pathologist provided ICD-10: K27.9 . 02 CPT . 345478, 951173, 071500, [id number] Performed at: [address] [facility] [address], [place], [place] [id number] MD Fabian Talamantes MD Phone: [phone] Performed at: [address] [facility] [id number] [place] [id number] MD Margarita Franklin MD Phone: [phone]
[2020-10-21] MEDS: SODIUM CHLORIDE 0.9% 1,000 ML 200 ML IV (13:54)
--- NOTE | 2020-10-21 14:19 | PM.PREOP ---
Pre-operative Note COVID-19 COVID-19 status: Negative Result date/Date tested (Pos, Neg/Pending): 10/20/20 Interval Note History & Physical reviewed/Exam performed by Physician: Yes Changes to H&P: No ASA Class (for procedural sedation): II
--- NOTE | 2020-10-21 14:24 | P.OP.ENDO_ITS ---
Operative Date/Time/Diagnoses Date of procedure: 10/21/20 Time of procedure: 14:24 Pre-op diagnosis: peptic ulcer disease Post-op diagnosis: other (Endoscopically duodenitis, healing pre-pyloric ulcers) Procedure & Clinicians Study performed: Esophagogastroduodenoscopy Procedural sedation performed by the endoscopist Biopsies of duodenum, stomach, esophagus with the standard forceps Same procedure as scheduled: Yes Indications: History of peptic ulcers with foveolar metaplasia, here for surveillance Surgeon: Lauryn Pope Procedure Notes SCOAP/Timeout: Performed Procedure in detail: The patient was brought to the room and placed in left lateral decubitus position with all bony prominences padded. A bite block was positioned in the patient's mouth to protect the lips, teeth, and tongue for the procedure. A time-out was performed and then the patient was given procedural sedation starting with 2 mg of Versed and 100 mcg of fentanyl. Vitals were monitored throughout the procedure and remained stable. Once adequately sedated, the procedure was begun. The lubricated gastroscope was passed through the bite block and across the tongue and into the esophagus without incident. A tubular view of the esophagus was maintained as the scope was advanced through the esophagus and into the stomach. The scope was advanced through the stomach and to the pylorus. The scope was gently popped through the pylorus and into the duodenal bulb. The scope was flexed and advanced into the second and third portions of the duodenum. The duodenum and duodenal bulb revealed some endoscopic duodenitis. This area is biopsied. The scope was withdrawn into the stomach. There were healing ulcers at the pre-pyloric area of the stomach. These were biopsied. No other signs of active gastritis or bleeding. The scope was retroflexed and the gastric cardia was examined. The hiatus appeared fairly normal. No evidence of hiatal hernia.. The scope was then straightened, and withdrawn into the esophagus. The Z-line appeared normal. The distal esophagus appeared normal. This area was biopsied. The scope was then withdrawn through the esophagus with a tubular view. The scope was then withdrawn from the patien t the procedure was concluded. The patient tolerated the procedure well and was transferred to the PACU in stable condition. Sedation minutes: 11 Findings: gastric ulcer and other findings (Duodenitis) Specimen(s): other (Duodenum, stomach, esophagus) Complications: none Impression: Ongoing gastric ulcers, ongoing duodenitis Post-procedure Recommendations: EGD in 1 year (Depending on biopsy results) and Continue medication(s) (Continue omeprazole) Plan for aftercare: We will contact you with biopsy results to let you now the recommendation for your next surveillance upper endoscopy. He should continue your omeprazole. Follow up: as needed Disposition: PACU
[2020-10-21] MEDS: fentaNYL 250 MCG/5 ML INJ IV (14:28)
[2020-10-21] MEDS: LIDOCAINE 4% SOLN 50 ML 20 ML TOP (14:28)
[2020-10-21] MEDS: MIDAZOLAM 5 MG/5 ML VIAL IV (14:28)
== END 2020-10-21 16:00 | disposition home or self-care (01) ==
PROVIDERS: Family Provider Family Medicine; PCP Family Medicine; Referring Provider Family Medicine; Visit Provider Surgery
PROC: 0DJ08ZZ Inspection of Upper Intestinal Tract, Via Natural or Artificial Opening Endoscopic (ICD-10-PCS; CPT 43235; principal; 2020-10-21 14:30)
DX: K25.7 Chronic gastric ulcer without hemorrhage or perforation (principal); F17.210 Nicotine dependence, cigarettes, uncomplicated; K29.80 Duodenitis without bleeding; K29.50 Unspecified chronic gastritis without bleeding
CPT/HCPCS: 43239; 99152; J2250; J3010

== ENCOUNTER 2022-08-01 10:25 | Emergency (ER) | payer OTHER, MEDICAID, SELFPAY ==
[2020-06-03 17:43] VITALS: BMI 23.2
[2022-08-01 10:40] VITALS: BP 177/85; PULSE 76; RESP 18; TEMP 37.1; O2SAT 99; BMI 23.8
[2022-08-01 11:06] LABS: COVID19 -Nasal RAPID Negative (Negative)
[2022-08-01 12:35] VITALS: BP 130/88; PULSE 89; RESP 18; O2SAT 98
--- NOTE | 2022-08-01 13:19 | DI.RAD.S_ITS ---
PROCEDURE: XR CHEST 2V INDICATIONS: Fever TECHNIQUE: 2 views of the chest were acquired. COMPARISON: [facility], , XR CHEST 1V, 06/04/2020, 5:06. FINDINGS: Surgical changes and devices: None. Lungs and pleura: Lungs are clear. No pleural effusions or pneumothorax. Mediastinum: Mediastinal contours are normal. Heart size is normal. Bones and chest wall: No suspicious bony abnormalities. Soft tissues appear unremarkable. IMPRESSION: Normal two view chest x-ray Approved by: Tk Grace M.D. on 08/01/2022 at 13:48
--- NOTE | 2022-08-01 13:35 | ED.FEVER ---
HPI - Fever <Elijah Tena PA-C - Last Filed: 08/01/22 20:33> General Chief Complaint: Fever Stated Complaint: cold, fever, sore throat several days Time Seen by Provider: 08/01/22 10:43 Source: patient Mode of arrival: Ambulatory History of Present Illness HPI Narrative: Patient is a 62-year-old female who presents to the emergency room today with complaint of fever and sore throat that started last Tuesday or Tuesday. He had this all week started taking Robitussin and time on Tuesday night. Patient mostly takes Robitussin at night and Tylenol during the day. Has not seen her primary care provider because she has a new primary care provider. States she reported her to the emergency room because she started taking Robitussin and Tylenol on Tuesday and does not feel like this is getting better so she went to see someone today instead of waiting until Tuesday to be seen by provider.. Related Data Previous Rx's Medication Instructions Recorded omeprazole 40 mg capsule,delayed 40 mg PO DAILY peptic ulcer #30 09/30/20 release caps Allergies Allergy/AdvReac Type Severity Reaction Status Date / Time Penicillins Allergy Rash Verified 08/01/22 10:37 Review of Systems <Elijah Tena PA-C - Last Filed: 08/01/22 20:33> Review of Systems Narrative: R.O.S.: General: No fever, chills or fatigue. Cardiovascular: No chest pain or palpitations Respiratory: No S.O.B. HEENT: No congestion, ear pain, rhinorrhea, sore throat or tinnitus Gastrointestinal: No nausea or vomiting Skin: No rash or associated abnormalities Musculoskeletal: No pain in muscles or joints, no limitation of range of motion, no paresthesia or numbness. ?? Neurological: Awake, alert and in not apparent distress. No Headaches, changes in vision or other related neurological concerns. Patient History <Elijah Tena PA-C - Last Filed: 08/01/22 20:33> Medical History (Updated 08/01/22 @ 13:42 by Elijah Tena PA-C) Rotator cuff tear, left Surgical History History of cholecystectomy Social History household members: none Smoking Status: Current every day smoker alcohol intake: never Smoking Status: Current every day smoker tobacco type: cigarettes alcohol intake frequency: other Substance Use Type: does not use Exam <Elijah Tena PA-C - Last Filed: 08/01/22 20:33> Narrative Exam Narrative: Physical Exam: ? General: normal appearance, well developed, well nourished, alert, and awake. Not in acute distress. ? Head: Normocephalic, no lesions. Chest: Lungs CTAB, no rales, rhonchi or wheezes. ?? Heart: RRR, no murmurs, rubs or gallops. Eyes: PERRLA, EOM's full, conjunctivae clear. ? Neuro: Physiological, no localizing findings, CN3-12 intact. ?? Extremities: Warm, well perfused, FROM, no deformities, no edema. ?? Skin: Normal, no rashes, no lesions noted. ?? PSYCHIATRIC: The mood is good, no blunted affect. Speech is clear. Thought process is linear, thought content is appropriate. The voice is without significant inflection. Gastrointestinal: Soft; NT; ND; Pos BS with Neg. rebound tenderness. No scars or major deformities noted on Visual Inspection. Initial Vital Signs Initial Vital Signs: Vital Signs Temperature 98.7 F 08/01/22 10:40 Pulse Rate 76 08/01/22 10:40 Respiratory Rate 18 08/01/22 10:40 Blood Pressure 177/85 H 08/01/22 10:40 Pulse Oximetry 99 08/01/22 10:40 Oxygen Delivery Method 08/01/22 10:40 <Dutch Curry DO - Last Filed: 08/02/22 06:57> Initial Vital Signs Initial Vital Signs: Vital Signs Temperature 98.7 F 08/01/22 10:40 Pulse Rate 76 08/01/22 10:40 Respiratory Rate 18 08/01/22 10:40 Blood Pressure 177/85 H 08/01/22 10:40 Pulse Oximetry 99 08/01/22 10:40 Oxygen Delivery Method 08/01/22 10:40 Course <TATUM Reis Last Filed: 08/01/22 20:33> Orders Ordered: ED Orders 08/01/22 13:19 XR chest 2V Stat EKG-12 Lead Stat 08/01/22 13:32 Complete Blood Count AUTO DIFF Stat Comprehensive Metabolic Panel Stat Procalcitonin Stat 08/01/22 14:30 Urinalysis and Microscopic Stat Vital Signs Vital signs: Vital Signs - 8 hr 08/01/22 13:54 08/01/22 12:35 08/01/22 15:00 Temperature 98 F Pulse Rate 85 89 80 Respiratory Rate 18 18 18 Blood Pressure 131/100 H 130/88 130/84 Pulse Oximetry 99 98 98 Oxygen Delivery Method 08/01/22 15:28 Temperature Pulse Rate 65 Respiratory Rate Blood Pressure Pulse Oximetry 97 Oxygen Delivery Method Room Air <Dutch Curry DO - Last Filed: 08/02/22 06:57> Orders Ordered: ED Orders 08/01/22 13:19 XR chest 2V Stat EKG-12 Lead Stat 08/01/22 13:32 Complete Blood Count AUTO DIFF Stat Comprehensive Metabolic Panel Stat Procalcitonin Stat 08/01/22 14:30 Urinalysis and Microscopic Stat Vital Signs Vital signs: Vital Signs - 8 hr 08/01/22 13:54 08/01/22 12:35 08/01/22 15:00 Temperature 98 F Pulse Rate 85 89 80 Respiratory Rate 18 18 18 Blood Pressure 131/100 H 130/88 130/84 Pulse Oximetry 99 98 98 Oxygen Delivery Method 08/01/22 15:28 Temperature Pulse Rate 65 Respiratory Rate Blood Pressure Pulse Oximetry 97 Oxygen Delivery Method Room Air MDM - Fever <Elijah Tena PA-C - Last Filed: 08/01/22 20:33> Lab Data Result diagrams: 08/01/22 13:32 08/01/22 13:32 Labs: Lab Results 08/01/22 08/01/22 08/01/22 Range/Units 10:30 13:32 13:32 WBC 10.2 (4.5-11.0) X10^3/uL RBC 4.86 (4.0-5.2) X10^6/uL Hgb 15.0 (12.0-16.0) g/dL Hct 44.2 (36-46) % MCV 91.0 (80-100) fL MCH 30.9 (26-34) PG MCHC 34.0 (30-36) % RDW 14.3 (11.6-14.8) % Plt Count 251 (150-400) X10^3/uL Neut % (Auto) 63.6 (50-75) % Lymph % (Auto) 24.9 L (25-40) % [place] % (Auto) 6.2 (3-14) % Eos % (Auto) 4.3 H (2-4) % Baso % (Auto) 1.0 (0-2) % Neut # (Auto) 6500 (0243-6791) /uL Lymph # (Auto) 2500 (4427-9018) /uL [place] # (Auto) 600 (0-900) /uL Eos # (Auto) 400 (0-450) /uL Baso # (Auto) 100 (0-100) /uL Sodium 143 (137-145) mmol/L Potassium 4.0 (3.4-5.1) mmol/L Chloride 107 (98-107) mmol/L Carbon Dioxide 29 (22-32) mmol/L BUN 9 (7-17) mg/dL Creatinine 0.51 L (0.52-1.04) mg/dL Estimated GFR > 60 (>60) mL/min BUN/Creatinine Ratio 17.6 (6-22) Glucose 94 (80-110) mg/dL Calcium 9.0 (8.4-10.2) mg/dL Total Bilirubin 0.4 (0.2-1.3) mg/dL AST 29 (14-36) IU/L ALT 26 (<35) IU/L Alkaline Phosphatase 94 (38-126) U/L Total Protein 7.9 (6.3-8.2) g/dL Albumin 4.2 (3.5-5.0) g/dL Globulin 3.7 (1.7-4.1) g/dL Albumin/Globulin Ratio 1.1 (1.0-2.8) Procalcitonin 0.04 (<0.5) ng/mL Urine Color Urine Appearance Urine pH (4.5-8.0) Ur Specific [place] (1.000-1.035) Urine Protein (Negative) Urine Glucose (UA) (Negative) g/dL Urine Ketones (NEGATIVE) Urine Occult Blood (Negative) Urine Nitrate (Negative) Urine Bilirubin (NEGATIVE) Urine Urobilinogen (0.2) E.U./dL Ur Leukocyte Esterase (NEGATIVE) Urine RBC (0-5/HPF) Urine WBC (0-5/HPF) Ur Squamous Epith Cells (0-5/HPF) Urine Bacteria (None) Ur Culture Indicated? SARS-CoV-2 (PCR) Negative (Negative) 08/01/22 Range/Units 14:30 WBC (4.5-11.0) X10^3/uL RBC (4.0-5.2) X10^6/uL Hgb (12.0-16.0) g/dL Hct (36-46) % MCV (80-100) fL MCH (26-34) PG MCHC (30-36) % RDW (11.6-14.8) % Plt Count (150-400) X10^3/uL Neut % (Auto) (50-75) % Lymph % (Auto) (25-40) % [place] % (Auto) (3-14) % Eos % (Auto) (2-4) % Baso % (Auto) (0-2) % Neut # (Auto) (5881-9246) /uL Lymph # (Auto) (3032-3990) /uL [place] # (Auto) (0-900) /uL Eos # (Auto) (0-450) /uL Baso # (Auto) (0-100) /uL Sodium (137-145) mmol/L Potassium (3.4-5.1) mmol/L Chloride (98-107) mmol/L Carbon Dioxide (22-32) mmol/L BUN (7-17) mg/dL Creatinine (0.52-1.04) mg/dL Estimated GFR (>60) mL/min BUN/Creatinine Ratio (6-22) Glucose (80-110) mg/dL Calcium (8.4-10.2) mg/dL Total Bilirubin (0.2-1.3) mg/dL AST (14-36) IU/L ALT (<35) IU/L Alkaline Phosphatase (38-126) U/L Total Protein (6.3-8.2) g/dL Albumin (3.5-5.0) g/dL Globulin (1.7-4.1) g/dL Albumin/Globulin Ratio (1.0-2.8) Procalcitonin (<0.5) ng/mL Urine Color Yellow Urine Appearance Clear Urine pH 7.0 (4.5-8.0) Ur Specific [place] <=1.005 (1.000-1.035) Urine Protein Negative (Negative) Urine Glucose (UA) Negative (Negative) g/dL Urine Ketones Negative (NEGATIVE) Urine Occult Blood Negative (Negative) Urine Nitrate Negative (Negative) Urine Bilirubin Negative (NEGATIVE) Urine Urobilinogen 0.2 (0.2) E.U./dL Ur Leukocyte Esterase Negative (NEGATIVE) Urine RBC None seen (0-5/HPF) Urine WBC None seen (0-5/HPF) Ur Squamous Epith Cells 0-1 /hpf (0-5/HPF) Urine Bacteria Occasional (0-1) (None) Ur Culture Indicated? Cult not indicated SARS-CoV-2 (PCR) (Negative) Point of Care Testing Rapid Strep A Negative Urine Dip Bedside Urine Glucose Negative Bedside Urine Bilirubin - Negative Bedside Urine Ketone - Negative Urine Specific [place] 1.005 Bedside Urine Occult Blood - Negative Bedside Urine pH 7.0 Bedside Urine Protein - Negative Bedside Urine Urobilinogen - Negative Bedside Urine Nitrite - Negative Bedside Urine Leukocytes - Negative Esterase Imaging Data Chest x-ray: My Impression: PROCEDURE:? XR CHEST 2V ? INDICATIONS:? Fever ? TECHNIQUE:? 2 views of the chest were acquired.? ? COMPARISON:? [facility], , XR CHEST 1V, 06/04/2020, 5:06. ? FINDINGS:? ? Surgical changes and devices:? None.? ? Lungs and pleura:? Lungs are clear.? No pleural effusions or pneumothorax.? ? Mediastinum:? Mediastinal contours are normal.? Heart size is normal.? ? Bones and chest wall:? No suspicious bony abnormalities.? Soft tissues appear unremarkable.? ? IMPRESSION:? Normal two view chest x-ray ? ? ? Approved by: Tk Grace M.D. on 08/01/2022 at 13:48? [facility] Narrative Medical decision making narrative: Patient is 62-year-old female who presents to the emergency room today with complaint of fever and sore throat that started around Tuesday of last week. It was not totally clear why the patient reported here instead of seeing a primary care provider but she says she has a new primary care provider and given the start of her medications and continuation of her condition she felt report here today was the best thing to do. Patient did not have a fever at 10:40 a.m. this morning and physical exam is unremarkable for any acute emergent concerns. Urine ordered to rule out urinary or bladder infections. Patient was also negative for strep throat and COVID 19. Chest film was also ordered to rule out any obvious pulmonary concerns. Patient was informed of the negative results of the diagnostics studies and labs. Patient advised to continue with [id number] and home remedies to treat her Likely viral URI related concerns. Also advised patient to return to the emergency room for any emergent concerns arise. Patient agreed with plan. <Dutch Curry, DO - Last Filed: 08/02/22 06:57> Lab Data Labs: Lab Results 08/01/22 08/01/22 08/01/22 Range/Units 10:30 13:32 13:32 WBC 10.2 (4.5-11.0) X10^3/uL RBC 4.86 (4.0-5.2) X10^6/uL Hgb 15.0 (12.0-16.0) g/dL Hct 44.2 (36-46) % MCV 91.0 (80-100) fL MCH 30.9 (26-34) PG MCHC 34.0 (30-36) % RDW 14.3 (11.6-14.8) % Plt Count 251 (150-400) X10^3/uL Neut % (Auto) 63.6 (50-75) % Lymph % (Auto) 24.9 L (25-40) % [place] % (Auto) 6.2 (3-14) % Eos % (Auto) 4.3 H (2-4) % Baso % (Auto) 1.0 (0-2) % Neut # (Auto) 6500 (4105-5768) /uL Lymph # (Auto) 2500 (0128-1164) /uL [place] # (Auto) 600 (0-900) /uL Eos # (Auto) 400 (0-450) /uL Baso # (Auto) 100 (0-100) /uL Sodium 143 (137-145) mmol/L Potassium 4.0 (3.4-5.1) mmol/L Chloride 107 (98-107) mmol/L Carbon Dioxide 29 (22-32) mmol/L BUN 9 (7-17) mg/dL Creatinine 0.51 L (0.52-1.04) mg/dL Estimated GFR > 60 (>60) mL/min BUN/Creatinine Ratio 17.6 (6-22) Glucose 94 (80-110) mg/dL Calcium 9.0 (8.4-10.2) mg/dL Total Bilirubin 0.4 (0.2-1.3) mg/dL AST 29 (14-36) IU/L ALT 26 (<35) IU/L Alkaline Phosphatase 94 (38-126) U/L Total Protein 7.9 (6.3-8.2) g/dL Albumin 4.2 (3.5-5.0) g/dL Globulin 3.7 (1.7-4.1) g/dL Albumin/Globulin Ratio 1.1 (1.0-2.8) Procalcitonin 0.04 (<0.5) ng/mL Urine Color Urine Appearance Urine pH (4.5-8.0) Ur Specific [place] (1.000-1.035) Urine Protein (Negative) Urine Glucose (UA) (Negative) g/dL Urine Ketones (NEGATIVE) Urine Occult Blood (Negative) Urine Nitrate (Negative) Urine Bilirubin (NEGATIVE) Urine Urobilinogen (0.2) E.U./dL Ur Leukocyte Esterase (NEGATIVE) Urine RBC (0-5/HPF) Urine WBC (0-5/HPF) Ur Squamous Epith Cells (0-5/HPF) Urine Bacteria (None) Ur Culture Indicated? SARS-CoV-2 (PCR) Negative (Negative) 08/01/22 Range/Units 14:30 WBC (4.5-11.0) X10^3/uL RBC (4.0-5.2) X10^6/uL Hgb (12.0-16.0) g/dL Hct (36-46) % MCV (80-100) fL MCH (26-34) PG MCHC (30-36) % RDW (11.6-14.8) % Plt Count (150-400) X10^3/uL Neut % (Auto) (50-75) % Lymph % (Auto) (25-40) % [place] % (Auto) (3-14) % Eos % (Auto) (2-4) % Baso % (Auto) (0-2) % Neut # (Auto) (4032-2257) /uL Lymph # (Auto) (7733-6021) /uL [place] # (Auto) (0-900) /uL Eos # (Auto) (0-450) /uL Baso # (Auto) (0-100) /uL Sodium (137-145) mmol/L Potassium (3.4-5.1) mmol/L Chloride (98-107) mmol/L Carbon Dioxide (22-32) mmol/L BUN (7-17) mg/dL Creatinine (0.52-1.04) mg/dL Estimated GFR (>60) mL/min BUN/Creatinine Ratio (6-22) Glucose (80-110) mg/dL Calcium (8.4-10.2) mg/dL Total Bilirubin (0.2-1.3) mg/dL AST (14-36) IU/L ALT (<35) IU/L Alkaline Phosphatase (38-126) U/L Total Protein (6.3-8.2) g/dL Albumin (3.5-5.0) g/dL Globulin (1.7-4.1) g/dL Albumin/Globulin Ratio (1.0-2.8) Procalcitonin (<0.5) ng/mL Urine Color Yellow Urine Appearance Clear Urine pH 7.0 (4.5-8.0) Ur Specific [place] <=1.005 (1.000-1.035) Urine Protein Negative (Negative) Urine Glucose (UA) Negative (Negative) g/dL Urine Ketones Negative (NEGATIVE) Urine Occult Blood Negative (Negative) Urine Nitrate Negative (Negative) Urine Bilirubin Negative (NEGATIVE) Urine Urobilinogen 0.2 (0.2) E.U./dL Ur Leukocyte Esterase Negative (NEGATIVE) Urine RBC None seen (0-5/HPF) Urine WBC None seen (0-5/HPF) Ur Squamous Epith Cells 0-1 /hpf (0-5/HPF) Urine Bacteria Occasional (0-1) (None) Ur Culture Indicated? Cult not indicated SARS-CoV-2 (PCR) (Negative) Point of Care Testing Rapid Strep A Negative Urine Dip Bedside Urine Glucose Negative Bedside Urine Bilirubin - Negative Bedside Urine Ketone - Negative Urine Specific [place] 1.005 Bedside Urine Occult Blood - Negative Bedside Urine pH 7.0 Bedside Urine Protein - Negative Bedside Urine Urobilinogen - Negative Bedside Urine Nitrite - Negative Bedside Urine Leukocytes - Negative Esterase Discharge Plan Departure Patient Disposition: Home Clinical Impression: Acute sore throat Instructions: Sore Throat Activity Restrictions/Additional Instructions: *You have been diagnosed with source of his throat secondary to a upper respiratory viral infection. As we discussed I suggest you continue home remedies such as increase her fluid intake remain warm avoid cold beverages continue to consume food and remain active. Also suggest to take Cepacol for sore throat. I also suggest to continue take Robitussin for general correlated concerns and I suggest you continue to take Tylenol for any headache related concerns. Please return to the emergency room should she have any emergent concerns. [ ] *What to do: *Please continue to take your regular medications as directed. [ ] New medication prescriptions sent to your pharmacy: [ ] [ ] New medication written as a paper prescription [x] No new medications given *Please follow up with your primary care provider in 2-3 days, call for an appointment. Let them know you were seen in the Emergency Department and that we ask that you be seen in follow up. We will electronically transmit a record of today's note if your PCP is in our system *If you do not have a primary care provider please contact the [facility] Resource line at [phone]. They will ask some questions about your medical history and help get you set up with a doctor in the community. *Return to Emergency Department if you should have any new, worsening or concerning symptoms, such as [fever greater than 101 F, shaking chills, worsening pain, persistent vomiting or other bothersome symptoms] Prescriptions: No Action omeprazole 40 mg capsule,delayed release(DR/EC) 40 mg PO DAILY Qty: 30 6RF Referrals: Miscellaneous,Doctor, [Primary Care Provider] - Visit Report Forms: Patient Portal/API <Dutch Curry, - Last Filed: 08/02/22 06:57> [facility] Coschelseyature Attestation: Dr Curry Co-Sign Statement: I was available for consultation during this patient's emergency department visit. This chart is signed by myself for administrative purposes only. I did not have direct contact with this patient during this visit. They were seen independently by the APC.
[2022-08-01 13:52] LABS: Add Manual Diff / Slide Review NO; Basophils Absolute Auto 100 /uL (0-100); Eosinophils Absolute Auto 400 /uL (0-450); Eosinophils Percent Auto 4.3 % (2-4); Hematocrit 44.2 % (36-46); Lymphocytes Absolute Auto 2500 /uL (1100-4500); Lymphocytes Percent Auto 24.9 % (25-40); Mean Corpuscular Hemoglobin 30.9 PG (26-34); Monocytes Absolute Auto 600 /uL (0-900); Monocytes Percent Auto 6.2 % (3-14); Neutrophils Absolute Auto 6500 /uL (1500-7000); Neutrophils Percent Auto 63.6 % (50-75); Platelet Count 251 X10^3/uL (150-400); Red Blood Cell Count 4.86 X10^6/uL (4.0-5.2); Red Cell Distribution Width 14.3 % (11.6-14.8); White Blood Cell Count 10.2 X10^3/uL (4.5-11.0)
[2022-08-01 13:54] VITALS: BP 131/100; PULSE 85; RESP 18; TEMP 36.6; O2SAT 99
[2022-08-01 14:03] LABS: Alanine Aminotransferase 26 IU/L (<35); Albumin 4.2 g/dL (3.5-5.0); Albumin Globulin Ratio 1.1 (1.0-2.8); Alkaline Phosphatase 94 U/L (38-126); Aspartate Aminotransferase 29 IU/L (14-36); BUN Creatinine Ratio 17.6 (6-22); Bilirubin Total 0.4 mg/dL (0.2-1.3); Blood Urea Nitrogen 9 mg/dL (7-17); Carbon Dioxide 29 mmol/L (22-32); Chloride 107 mmol/L (98-107); Estimated Glomerular Filt Rate > 60 mL/min (>60); Globulin 3.7 g/dL (1.7-4.1); Glucose 94 mg/dL (80-110); HEMOLYSIS < 15 (0-50); Sodium 143 mmol/L (137-145); Total Protein 7.9 g/dL (6.3-8.2)
[2022-08-01 14:19] LABS: Procalcitonin 0.04 ng/mL (<0.5)
[2022-08-01 14:32] LABS: Appearance Urine UA CLEAR; Bilirubin Urine UA NEGATIVE (NEGATIVE); Color Urine UA YELLOW; Glucose Urine UA NEGATIVE (Negative); Ketones Urine UA NEGATIVE (NEGATIVE); Leukocyte Esterase Urine UA NEGATIVE (NEGATIVE); Nitrite Urine UA NEGATIVE (Negative); Occult Blood Urine UA NEGATIVE (Negative); Protein Urine UA NEGATIVE (Negative); Specific Gravity Urine UA <=1.005 (1.000-1.035); Urobilinogen Urine UA 0.2 E.U./dL (0.2)
[2022-08-01 14:41] LABS: RBC Urine None Seen (0-5/HPF); WBC Urine None Seen (0-5/HPF)
[2022-08-01 14:42] LABS: Bacteria Urine Occasional (0-1); Culture Indicated Urine Cult Not Indicated; Squamous Epithelial Cell Urine 0-1 /HPF (0-5/HPF)
[2022-08-01 15:00] VITALS: BP 130/84; PULSE 80; RESP 18; O2SAT 98
[2022-08-01 15:28] VITALS: PULSE 65; O2SAT 97
== END 2022-08-01 15:30 | disposition home or self-care (01) ==
PROVIDERS: Emergency Medicine; Emergency Provider Physician Assistant; Family Provider Family Medicine
DX: J02.9 Acute pharyngitis, unspecified (principal); Z20.822 Contact with and (suspected) exposure to COVID-19
CPT/HCPCS: 36415; 71046; 80053; 81001; 81003; 84145; 85025; 87635; 87880; 93005; 93010; 99284; C9803